=== PATIENT | female | born 1960 | race Caucasian/White ===

== ENCOUNTER 2019-01-10 06:30 | Day surgery (SDC) | payer OTHER ==
--- NOTE | 2019-01-09 12:59 | RAD REPORT ---
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 COMPARISON: Chest Single View dated 05/29/2017 FINDINGS: The lungs are clear. The heart is upper limit of normal in size. No displaced fractures. S ternotomy wires noted. IMPRESSION: Mildly prominent cardiac silhouette.
[2019-01-09 13:48] LABS: Protime INR 1.34
--- OUTSIDE RECORDS SUMMARY | 2019-01-10 06:34 | XMS REPORT | Clinical Summary ---
:1960 Author Organization [facility] Address [address] [place] [address] Care Team Providers Name Role Phone Alex Hui MD Primary Care Provider Noe Huynh Unavailable Allergies Active Allergy Reactions Severity Noted Date Comments Venlafaxine Nausea And Vomiting High 05/29/2017 Heparin Analogues Other (See Comments) 06/07/2017 SULTANA - strong positive OD=2.714 - STEPHAN conformation pending Penicillins Other (See Comments) 05/29/2017 Pt doesn't know Metaxalone Hives High 05/29/2017 Medications Medication Sig Dispensed Refills Start Date End Date Status topiramate Take 25 mg by mouth 0 Active (TOPAMAX) 25 MG daily. tablet metFORMIN Take 1,000 mg by 0 Active (GLUCOPHAGE) 1000 mouth 2 (two) times MG tablet daily with breakfast and dinner. insulin aspart Inject 20 Units 0 Active (NOVOLOG) 100 subcutaneously every unit/mL InPn morning before breakfast. insulin aspart Inject 40 Units 0 Active (NOVOLOG) 100 subcutaneously every unit/mL InPn evening before dinner. levothyroxine Take 175 mcg by 0 Active (SYNTHROID, mouth Every morning LEVOTHROID) 175 MCG on an empty stomach. tablet dextroamphetamine-a Take 3 mg by mouth 0 Active mphetamine every morning. (ADDERALL XR) 5 MG 24 hr capsule warfarin (COUMADIN) Take 5 mg and 2.5 mg 90 tablet 0 06/13/2017 Active 5 MG tablet PO on alternating days.. amiodarone Take 1 tablet (200 30 tablet 0 06/14/2017 (PACERONE) 200 MG mg total) by mouth 8 tablet daily. atorvastatin Take 1 tablet (20 mg 90 tablet 0 06/13/2017 (LIPITOR) 20 MG total) by mouth 8 tablet nightly. metoprolol Take 1 tablet (50 mg 120 tablet 0 06/13/2017 (LOPRESSOR) 50 MG total) by mouth 2 8 tablet (two) times daily. metoprolol Take 1 tablet (100 60 tablet 0 06/13/2017 (TOPROL-XL) 100 MG mg total) by mouth 8 24 hr tablet daily. Active Problems Problem Noted Date Heparin induced thrombocytopenia 06/14/2017 Acute encephalopathy 06/02/2017 Hyperchloremia 06/02/2017 Hypernatremia 06/02/2017 Acute pulmonary insufficiency following thoracic surgery 06/02/2017 DM (acute kidney injury) 06/02/2017 S/P CABG x 3-05/31/17 06/01/2017 Type 2 diabetes mellitus 05/31/2017 Obesity (BMI 30-39.9) 05/31/2017 S/P ACBx3, Dr. Jacob (.13) 05/30/2017 Hypertension 05/30/2017 Hyperlipidemia 05/30/2017 Tobacco abuse 05/30/2017 CAD (coronary artery disease) 05/30/2017 Hypokalemia Acute pulmonary edema Agitation Atrial fibrillation with RVR Social History Tobacco Use Types Packs/Day Years Used Date Never Assessed Sex Assigned at Date Recorded Not on file Job Start Date Occupation Industry Not on file Not on file Not on file Travel History Travel Start Travel End No recent travel history available. Last Filed Vital Signs Not on file Plan of Treatment Not on file Implants Implanted Type [employer] Device Shelf Model / Identifier Expiration Date Serial / Lot Surgical Steel Other Chest [employer] ENDO 08/16/2021 [id number] / Implanted: Qty: 1 on 05/31/2017 by Jonathan Jacob MD SURGERY / [id number] Surgical Steel Other Chest [employer] ENDO 12/16/2021 [id number] / Implanted: Qty: 1 on 05/31/2017 by Jonathan Jacob MD SURGERY / [id number] Results Not on fileafter 01/09/2018 Insurance Payer Benefit Plan / Group Subscriber ID Type Phone Address [employer] - [employer] HMO POS QPOS xxxxxxxxxx HMO/POS Advance Directives For more information, please contact:[id number] [place], [place] [phone] Code Status Date Activated Date Inactivated Comments Full Code 06/02/2017 3:02 PM 06/14/2017 12:58 AM This code status was determined by: Patient Full Code 06/02/2017 12:40 PM 06/02/2017 3:02 PM This code status was determined by: Patient DNR 06/02/2017 12:38 PM 06/02/2017 12:40 PM Full Code 05/30/2017 7:21 PM 06/02/2017 12:38 PM This code status was determined by: Patient Full Code 05/30/2017 1:03 PM 05/30/2017 7:21 PM This code status was determined by: Patient
--- OUTSIDE RECORDS SUMMARY | 2019-01-10 06:38 | XMS REPORT ---
:1960 [facility] Address [address] [place] [address] [address]. [address] [place] [address] Care Team Providers Name Role Phone LATASHA PIERCE Unavailable Unavailable Problems This patient has no known problems. Allergies, Adverse Reactions, Alerts This patient has no known allergies or adverse reactions. Medications This patient has no known medications. Results Test Description Test Time Test Comments Text Results Atomic Results Result Comments PROTHROMBIN TIME/INR 2017-06-13 15:15:00 Test Item Value Reference Range Comments PROTIME (BEAKER) (test zlxl=062) 35.4 seconds 11.7-14.7 INR (BEAKER) (test owqi=106) 3.5 <=5.9 RECOMMENDED COUMADIN/WARFARIN INR THERAPY RANGESSTANDARD DOSE: 2.0 - 3.0 Includes: PROPHYLAXIS forvenous thrombosis, systemic embolization; TREATMENT for venous thrombosis and/or pulmonary embolus.HIGH RISK: Target INR is 2.5-3.5 for patients with mechanical heart valves.POCT-GLUCOSE [id number] 12:58:00 Test Item Value Reference Range Comments POC-GLUCOSE METER (BEAKER) 255 mg/dL 70-110 TESTED AT [facility] [address] [facility] (test kmsn=7819) [facility] [address] POCT-GLUCOSE [id number] 12:38:00 Test Item Value Reference Range Comments POC-GLUCOSE METER (BEAKER) 179 mg/dL 70-110 TESTED AT [facility] [address] [facility] (test wmbj=7825) [facility] [address] [id number] 09:00:00 Test Item Value Reference Range Comments PARTIAL THROMBOPLASTIN TIME (BEAKER) (test 62.7 seconds 22.5-36.0 tlps=581) POCT-GLUCOSE [id number] 08:56:00 Test Item Value Reference Range Comments POC-GLUCOSE METER (BEAKER) 135 mg/dL 70-110 TESTED AT [facility] [address] [place] [address] (test dvlb=4519) [facility] [address] POCT-GLUCOSE [id number] 08:55:00 Test Item Value Reference Range Comments POC-GLUCOSE METER (BEAKER) 148 mg/dL 70-110 TESTED AT [place] [id number] [facility] (test aucm=9363) [facility] [address] [id number] 02:57:00 Test Item Value Reference Range Comments PARTIAL THROMBOPLASTIN TIME (BEAKER) (test 106.5 seconds 22.5-36.0 ytgr=796) While on warfarin.PROTHROMBIN [id number] 02:48:00 Test Item Value Reference Range Comments PROTIME (BEAKER) (test xidf=374) 53.7 seconds 11.7-14.7 INR (BEAKER) (test oaby=852) 5.9 <=5.9 RECOMMENDED COUMADIN/WARFARIN INR THERAPY RANGESSTANDARD DOSE: 2.0 - 3.0 Includes: PROPHYLAXIS forvenous thrombosis, systemic embolization; TREATMENT for venous thrombosis and/or pulmonary embolus.HIGH RISK: Target INR is 2.5-3.5 for patients with mechanical heart valves.While on warfarin.CBC W/PLT COUNT &amp ; AUTO [id number] 02:37:00 Test Item Value Reference Range Comments WHITE BLOOD CELL COUNT (BEAKER) (test gzjz=650) 9.0 K/ L 3.5-10.5 RED BLOOD CELL COUNT (BEAKER) (test wknc=831) 3.13 M/ L 3.93-5.22 HEMOGLOBIN (BEAKER) (test sggj=229) 9.2 GM/DL 11.2-15.7 HEMATOCRIT (BEAKER) (test iypx=139) 29.2 % 34.1-44.9 MEAN CORPUSCULAR VOLUME (BEAKER) (test oiyo=136) 93.3 fL 79.4-94.8 MEAN CORPUSCULAR HEMOGLOBIN (BEAKER) (test 29.4 pg 25.6-32.2 dvlt=712) MEAN CORPUSCULAR HEMOGLOBIN CONC (BEAKER) (test 31.5 GM/DL 32.2-35.5 ewbv=114) RED CELL DISTRIBUTION WIDTH (BEAKER) (test 13.8 % 11.7-14.4 kdgu=292) PLATELET COUNT (BEAKER) (test txhp=082) 130 K/CU MM 150-450 MEAN PLATELET VOLUME (BEAKER) (test lebf=109) 11.6 fL 9.4-12.3 NUCLEATED RED BLOOD CELLS (BEAKER) (test 0 /100 WBC 0-0 kiqs=376) NEUTROPHILS RELATIVE PERCENT (BEAKER) (test 58 % vigx=284) LYMPHOCYTES RELATIVE PERCENT (BEAKER) (test 32 % hueg=777) MONOCYTES RELATIVE PERCENT (BEAKER) (test 7 % tqsx=795) EOSINOPHILS RELATIVE PERCENT (BEAKER) (test 2 % niph=788) BASOPHILS RELATIVE PERCENT (BEAKER) (test 1 % bcos=336) NEUTROPHILS ABSOLUTE COUNT (BEAKER) (test 5.22 K/ L 1.56-6.13 kjmu=383) LYMPHOCYTES ABSOLUTE COUNT (BEAKER) (test 2.84 K/ L 1.18-3.74 uqgi=810) MONOCYTES ABSOLUTE COUNT (BEAKER) (test 0.60 K/ L 0.24-0.36 hrpu=877) EOSINOPHILS ABSOLUTE COUNT (BEAKER) (test 0.19 K/ L 0.04-0.36 keei=041) BASOPHILS ABSOLUTE COUNT (BEAKER) (test 0.08 K/ L 0.01-0.08 nhsy=706) IMMATURE GRANULOCYTES-RELATIVE PERCENT (BEAKER) 1 % 0-1 (test iiif=0829) [id number] 21:45:00 Test Item Value Reference Range Comments PARTIAL THROMBOPLASTIN TIME (BEAKER) (test 117.1 seconds 22.5-36.0 npsz=737) POCT-GLUCOSE [id number] 20:47:00 Test Item Value Reference Range Comments POC-GLUCOSE METER (BEAKER) 107 mg/dL 70-110 TESTED AT [address] (test orje=5762) [place] [id number] POCT-GLUCOSE [id number] 16:58:00 Test Item Value Reference Range Comments POC-GLUCOSE METER (BEAKER) 229 mg/dL 70-110 TESTED AT [address] (test vblj=3694) [place] [address] [id number] 15:13:00 Test Item Value Reference Range Comments PARTIAL THROMBOPLASTIN TIME (BEAKER) (test 40.3 seconds 22.5-36.0 lwei=790) Draw baseline aPTT prior to infusionPOCT-GLUCOSE [id number] 11:16:00 Test Item Value Reference Range Comments POC-GLUCOSE METER (BEAKER) 166 mg/dL 70-110 TESTED AT [place] [id number] [facility] (test zfyk=4716) [facility] [address] POCT-GLUCOSE [id number] 07:45:00 Test Item Value Reference Range Comments POC-GLUCOSE METER (BEAKER) 121 mg/dL 70-110 TESTED AT [address] (test jjdt=5634) [facility] [address] CBC W/PLT COUNT & AUTO [id number] 06:39:00 Test Item Value Reference Range Comments WHITE BLOOD CELL COUNT (BEAKER) (test byci=854) 8.0 K/ L 3.5-10.5 RED BLOOD CELL COUNT (BEAKER) (test xfuf=554) 3.06 M/ L 3.93-5.22 HEMOGLOBIN (BEAKER) (test vquh=103) 8.9 GM/DL 11.2-15.7 HEMATOCRIT (BEAKER) (test kjzo=674) 28.5 % 34.1-44.9 MEAN CORPUSCULAR VOLUME (BEAKER) (test jnsc=885) 93.1 fL 79.4-94.8 MEAN CORPUSCULAR HEMOGLOBIN (BEAKER) (test 29.1 pg 25.6-32.2 oilo=717) MEAN CORPUSCULAR HEMOGLOBIN CONC (BEAKER) (test 31.2 GM/DL 32.2-35.5 ktqy=424) RED CELL DISTRIBUTION WIDTH (BEAKER) (test 13.8 % 11.7-14.4 rgoa=386) PLATELET COUNT (BEAKER) (test ykvr=822) 104 K/CU MM 150-450 MEAN PLATELET VOLUME (BEAKER) (test yrba=763) 11.7 fL 9.4-12.3 NUCLEATED RED BLOOD CELLS (BEAKER) (test 0 /100 WBC 0-0 wwqu=707) NEUTROPHILS RELATIVE PERCENT (BEAKER) (test 64 % qqxw=874) LYMPHOCYTES RELATIVE PERCENT (BEAKER) (test 25 % sftk=376) MONOCYTES RELATIVE PERCENT (BEAKER) (test 7 % vkgg=931) EOSINOPHILS RELATIVE PERCENT (BEAKER) (test 2 % ksuy=174) BASOPHILS RELATIVE PERCENT (BEAKER) (test 1 % lntv=894) NEUTROPHILS ABSOLUTE COUNT (BEAKER) (test 5.12 K/ L 1.56-6.13 frck=300) LYMPHOCYTES ABSOLUTE COUNT (BEAKER) (test 1.95 K/ L 1.18-3.74 mmha=389) MONOCYTES ABSOLUTE COUNT (BEAKER) (test 0.59 K/ L 0.24-0.36 dkkb=439) EOSINOPHILS ABSOLUTE COUNT (BEAKER) (test 0.15 K/ L 0.04-0.36 ggds=963) BASOPHILS ABSOLUTE COUNT (BEAKER) (test 0.04 K/ L 0.01-0.08 leuz=515) IMMATURE GRANULOCYTES-RELATIVE PERCENT (BEAKER) 1 % 0-1 (test ggaq=5867) PROTHROMBIN [id number] 06:30:00 Test Item Value Reference Range Comments PROTIME (BEAKER) (test bhcd=592) 33.5 seconds 11.7-14.7 INR (BEAKER) (test pvwe=864) 3.3 <=5.9 RECOMMENDED COUMADIN/WARFARIN INR THERAPY RANGESSTANDARD DOSE: 2.0 - 3.0 Includes: PROPHYLAXIS forvenous thrombosis, systemic embolization; TREATMENT for venous thrombosis and/or pulmonary embolus.HIGH RISK: Target INR is 2.5-3.5 for patients with mechanical heart valves.While on warfarin.POCT-GLUCOSE [id number] 21:00:00 Test Item Value Reference Range Comments POC-GLUCOSE METER (BEAKER) 107 mg/dL 70-110 TESTED AT [address] (test aaim=8450) [place] [address] POCT-GLUCOSE [id number] 17:03:00 Test Item Value Reference Range Comments POC-GLUCOSE METER (BEAKER) 178 mg/dL 70-110 TESTED AT [address] (test ocvh=8098) [place] [id number] POCT-GLUCOSE [id number] 12:04:00 Test Item Value Reference Range Comments POC-GLUCOSE METER (BEAKER) 121 mg/dL 70-110 TESTED AT [address] (test rucl=5329) [place] [address] CBC W/PLT COUNT & AUTO [id number] 09:07:00 Test Item Value Reference Range Comments WHITE BLOOD CELL COUNT (BEAKER) (test cxlp=718) 8.1 K/ L 3.5-10.5 RED BLOOD CELL COUNT (BEAKER) (test iqwf=053) 3.20 M/ L 3.93-5.22 HEMOGLOBIN (BEAKER) (test xiru=196) 9.3 GM/DL 11.2-15.7 HEMATOCRIT (BEAKER) (test cvof=214) 30.1 % 34.1-44.9 MEAN CORPUSCULAR VOLUME (BEAKER) (test vxnz=836) 94.1 fL 79.4-94.8 MEAN CORPUSCULAR HEMOGLOBIN (BEAKER) (test 29.1 pg 25.6-32.2 rkux=229) MEAN CORPUSCULAR HEMOGLOBIN CONC (BEAKER) (test 30.9 GM/DL 32.2-35.5 wrgb=539) RED CELL DISTRIBUTION WIDTH (BEAKER) (test 13.6 % 11.7-14.4 fsip=421) PLATELET COUNT (BEAKER) (test ltne=455) 93 K/CU MM 150-450 MEAN PLATELET VOLUME (BEAKER) (test kzwt=613) 12.0 fL 9.4-12.3 NUCLEATED RED BLOOD CELLS (BEAKER) (test 0 /100 WBC 0-0 apgj=174) NEUTROPHILS RELATIVE PERCENT (BEAKER) (test 65 % hddj=137) LYMPHOCYTES RELATIVE PERCENT (BEAKER) (test 24 % ncnm=607) MONOCYTES RELATIVE PERCENT (BEAKER) (test 8 % dcni=710) EOSINOPHILS RELATIVE PERCENT (BEAKER) (test 2 % mkfk=807) BASOPHILS RELATIVE PERCENT (BEAKER) (test 1 % awgz=479) NEUTROPHILS ABSOLUTE COUNT (BEAKER) (test 5.24 K/ L 1.56-6.13 uhfv=002) LYMPHOCYTES ABSOLUTE COUNT (BEAKER) (test 1.93 K/ L 1.18-3.74 nmwh=362) MONOCYTES ABSOLUTE COUNT (BEAKER) (test gpxt=797) 0.61 K/ L 0.24-0.36 EOSINOPHILS ABSOLUTE COUNT (BEAKER) (test 0.18 K/ L 0.04-0.36 kwqw=325) BASOPHILS ABSOLUTE COUNT (BEAKER) (test atuj=948) 0.04 K/ L 0.01-0.08 IMMATURE GRANULOCYTES-RELATIVE PERCENT (BEAKER) 1 % 0-1 (test mtco=2594) POCT-GLUCOSE [id number] 07:59:00 Test Item Value Reference Range Comments POC-GLUCOSE METER (BEAKER) 96 mg/dL 70-110 TESTED AT [facility] [address] (test yfrl=4065) [facility] [address] [id number] 07:22:00 Test Item Value Reference Range Comments MAGNESIUM (BEAKER) (test ffug=060) 1.7 mg/dL 1.6-2.6 BASIC METABOLIC [id number] 07:22:00 Test Item Value Reference Range Comments SODIUM (BEAKER) (test 142 meq/L 136-145 hvvb=051) POTASSIUM (BEAKER) (test 3.9 meq/L 3.5-5.1 jilr=676) CHLORIDE (BEAKER) (test 111 meq/L 98-107 oesa=562) CO2 (BEAKER) (test 24 meq/L 22-29 ypvc=533) BLOOD UREA NITROGEN 5 mg/dL 7-21 (BEAKER) (test bbbp=035) CREATININE (BEAKER) (test 0.74 mg/dL 0.57-1.25 ynhh=005) GLUCOSE RANDOM (BEAKER) 89 mg/dL 70-105 (test lehs=035) CALCIUM (BEAKER) (test 8.6 mg/dL 8.4-10.2 dqvo=951) EGFR (BEAKER) (test 81 mL/min/1.73 sq m ESTIMATED GFR IS NOT jesz=0828) ACCURATE CREATININE CLEARANCE IN PREDICTING GLOMERULAR FILTRATION RATE. ESTIMATED GFR IS NOT APPLICABLE FOR DIALYSIS PATIENTS. [id number] 06:56:00 Test Item Value Reference Range Comments PARTIAL THROMBOPLASTIN TIME (BEAKER) (test 86.0 seconds 22.5-36.0 ajiv=262) PROTHROMBIN [id number] 06:54:00 Test Item Value Reference Range Comments PROTIME (BEAKER) (test xjuz=445) 38.5 seconds 11.7-14.7 INR (BEAKER) (test klos=379) 3.9 <=5.9 RECOMMENDED COUMADIN/WARFARIN INR THERAPY RANGESSTANDARD DOSE: 2.0 - 3.0 Includes: PROPHYLAXIS forvenous thrombosis, systemic embolization; TREATMENT for venous thrombosis and/or pulmonary embolus.HIGH RISK: Target INR is 2.5-3.5 for patients with mechanical heart valves.While on warfarin.POCT-GLUCOSE [id number] 21:44:00 Test Item Value Reference Range Comments POC-GLUCOSE METER (BEAKER) 203 mg/dL 70-110 TESTED AT [address] (test skrt=2956) [place] [id number] POCT-GLUCOSE [id number] 16:43:00 Test Item Value Reference Range Comments POC-GLUCOSE METER (BEAKER) 185 mg/dL 70-110 TESTED AT [address] (test iqzz=4182) [place] [address] RAD, WRIST, 2 VIEWS, [id number] 16:40:00Reason for exam:->wrist painFINAL REPORT HISTORY: Pain. COMPARISON: None Discussion: AP, oblique and lateral views of the left wrist were obtained. There are no fractures or dislocations. No lytic or blastic abnormalities are seen. No radiopaque foreign bodies are appreciated. There is negative ulnar variance. IMPRESSION: No acute osseous abnormalities of the left wrist. Signed: Aleksandr Yo Verified Date/Time: 06/10/2017 16:40:18 Reading Location : [address] Reading Room [id number] 15:13:00 Test Item Value Reference Range Comments PARTIAL THROMBOPLASTIN TIME (BEAKER) (test 84.6 seconds 22.5-36.0 ntze=519) 4 hours after the start of continuous infusion and 4 hours after any rate changePOCT-GLUCOSE [id number] 13:01:00 Test Item Value Reference Range Comments POC-GLUCOSE METER (BEAKER) 166 mg/dL 70-110 TESTED AT [address] (test jgnb=6493) [place] [address] [id number] 11:11:00 Test Item Value Reference Range Comments PARTIAL THROMBOPLASTIN TIME (BEAKER) (test 75.4 seconds 22.5-36.0 brsx=252) PROTHROMBIN [id number] 10:13:00 Test Item Value Reference Range Comments PROTIME (BEAKER) (test cxjf=911) 22.8 seconds 11.7-14.7 INR (BEAKER) (test wrpk=203) 2.0 <=5.9 RECOMMENDED COUMADIN/WARFARIN INR THERAPY RANGESSTANDARD DOSE: 2.0 - 3.0 Includes: PROPHYLAXIS forvenous thrombosis, systemic embolization; TREATMENT for venous thrombosis and/or pulmonary embolus.HIGH RISK: Target INR is 2.5-3.5 for patients with mechanical heart valves.CBC W/PLT COUNT & AUTO [id number] 09:48:00 Test Item Value Reference Range Comments WHITE BLOOD CELL COUNT (BEAKER) (test laoy=822) 8.9 K/ L 3.5-10.5 RED BLOOD CELL COUNT (BEAKER) (test enxn=260) 3.17 M/ L 3.93-5.22 HEMOGLOBIN (BEAKER) (test mdtu=492) 9.5 GM/DL 11.2-15.7 HEMATOCRIT (BEAKER) (test nqeo=940) 29.8 % 34.1-44.9 MEAN CORPUSCULAR VOLUME (BEAKER) (test juih=662) 94.0 fL 79.4-94.8 MEAN CORPUSCULAR HEMOGLOBIN (BEAKER) (test 30.0 pg 25.6-32.2 qyfz=424) MEAN CORPUSCULAR HEMOGLOBIN CONC (BEAKER) (test 31.9 GM/DL 32.2-35.5 mcud=510) RED CELL DISTRIBUTION WIDTH (BEAKER) (test 13.6 % 11.7-14.4 hnme=202) PLATELET COUNT (BEAKER) (test mnpf=563) 77 K/CU MM 150-450 MEAN PLATELET VOLUME (BEAKER) (test vsac=513) 11.8 fL 9.4-12.3 NUCLEATED RED BLOOD CELLS (BEAKER) (test 0 /100 WBC 0-0 ejyc=937) NEUTROPHILS RELATIVE PERCENT (BEAKER) (test 63 % myvl=220) LYMPHOCYTES RELATIVE PERCENT (BEAKER) (test 25 % holk=890) MONOCYTES RELATIVE PERCENT (BEAKER) (test 8 % wmwn=301) EOSINOPHILS RELATIVE PERCENT (BEAKER) (test 2 % uokg=347) BASOPHILS RELATIVE PERCENT (BEAKER) (test 1 % nagn=603) NEUTROPHILS ABSOLUTE COUNT (BEAKER) (test 5.58 K/ L 1.56-6.13 fwfo=548) LYMPHOCYTES ABSOLUTE COUNT (BEAKER) (test 2.23 K/ L 1.18-3.74 auez=773) MONOCYTES ABSOLUTE COUNT (BEAKER) (test lmps=244) 0.70 K/ L 0.24-0.36 EOSINOPHILS ABSOLUTE COUNT (BEAKER) (test 0.19 K/ L 0.04-0.36 qhcl=668) BASOPHILS ABSOLUTE COUNT (BEAKER) (test snqc=027) 0.06 K/ L 0.01-0.08 IMMATURE GRANULOCYTES-RELATIVE PERCENT (BEAKER) 2 % 0-1 (test hhan=8058) POCT-GLUCOSE [id number] 08:41:00 Test Item Value Reference Range Comments POC-GLUCOSE METER (BEAKER) 121 mg/dL 70-110 TESTED AT [address] (test vfmv=4081) [place] [address] [id number] 00:26:00 Test Item Value Reference Range Comments PARTIAL THROMBOPLASTIN TIME (BEAKER) (test 53.5 seconds 22.5-36.0 nrbk=513) 4 hours after the start of continuous infusion and 4 hours after any rate changePOCT-GLUCOSE [id number] 21:10:00 Test Item Value Reference Range Comments POC-GLUCOSE METER (BEAKER) 179 mg/dL 70-110 TESTED AT [address] (test dlhi=1187) [place] [address] [id number] 19:09:00 Test Item Value Reference Range Comments PARTIAL THROMBOPLASTIN TIME (BEAKER) (test 58.8 seconds 22.5-36.0 xwje=089) 4 hours after the start of continuous infusion and 4 hours after any rate changePOCT-GLUCOSE [id number] 17:37:00 Test Item Value Reference Range Comments POC-GLUCOSE METER (BEAKER) 207 mg/dL 70-110 TESTED AT [address] (test cnqj=4375) [place] [address] PROTHROMBIN [id number] 14:42:00 Test Item Value Reference Range Comments PROTIME (BEAKER) (test akhk=509) 18.9 seconds 11.7-14.7 INR (BEAKER) (test zohb=309) 1.6 <=5.9 RECOMMENDED COUMADIN/WARFARIN INR THERAPY RANGESSTANDARD DOSE: 2.0 - 3.0 Includes: PROPHYLAXIS forvenous thrombosis, systemic embolization; TREATMENT for venous thrombosis and/or pulmonary embolus.HIGH RISK: Target INR is 2.5-3.5 for patients with mechanical heart valves.4 hours after the start of continuous infusion and 4 hours after any rate [id number] 14:42:00 Test Item Value Reference Range Comments PARTIAL THROMBOPLASTIN TIME (BEAKER) (test 52.7 seconds 22.5-36.0 lqxe=245) 4 hours after the start of continuous infusion and 4 hours after any rate changeBASIC METABOLIC [id number] 14:25:00 Test Item Value Reference Range Comments SODIUM (BEAKER) (test 140 meq/L 136-145 xwch=700) POTASSIUM (BEAKER) (test 3.7 meq/L 3.5-5.1 knxs=075) CHLORIDE (BEAKER) (test 112 meq/L 98-107 ttba=238) CO2 (BEAKER) (test 19 meq/L 22-29 wpuc=268) BLOOD UREA NITROGEN 6 mg/dL 7-21 (BEAKER) (test pbtr=641) CREATININE (BEAKER) (test 0.74 mg/dL 0.57-1.25 oure=706) GLUCOSE RANDOM (BEAKER) 209 mg/dL 70-105 (test vuqe=033) CALCIUM (BEAKER) (test 8.3 mg/dL 8.4-10.2 wmvl=703) EGFR (BEAKER) (test 81 mL/min/1.73 sq m ESTIMATED GFR IS NOT ajjp=7708) ACCURATE CREATININE CLEARANCE IN PREDICTING GLOMERULAR FILTRATION RATE. ESTIMATED GFR IS NOT APPLICABLE FOR DIALYSIS PATIENTS. [id number] 13:43:00 Test Item Value Reference Range Comments PARTIAL THROMBOPLASTIN TIME (BEAKER) (test 134.0 seconds 22.5-36.0 igiq=482) [id number] 13:29:00 Test Item Value Reference Range Comments FIBRINOGEN LEVEL (BEAKER) (test ryee=835) 227 mg/dl 225-434 CBC (HEMOGRAM ONLY)2017-06-09 13:00:00 Test Item Value Reference Range Comments WHITE BLOOD CELL COUNT (BEAKER) (test ilxl=353) 9.1 K/ L 3.5-10.5 RED BLOOD CELL COUNT (BEAKER) (test wxiv=773) 3.13 M/ L 3.93-5.22 HEMOGLOBIN (BEAKER) (test wqsz=837) 9.3 GM/DL 11.2-15.7 HEMATOCRIT (BEAKER) (test yzor=816) 29.3 % 34.1-44.9 MEAN CORPUSCULAR VOLUME (BEAKER) (test htad=112) 93.6 fL 79.4-94.8 MEAN CORPUSCULAR HEMOGLOBIN (BEAKER) (test 29.7 pg 25.6-32.2 foya=848) MEAN CORPUSCULAR HEMOGLOBIN CONC (BEAKER) (test 31.7 GM/DL 32.2-35.5 jgas=361) RED CELL DISTRIBUTION WIDTH (BEAKER) (test 13.6 % 11.7-14.4 icbs=284) PLATELET COUNT (BEAKER) (test vnyd=796) 57 K/CU MM 150-450 MEAN PLATELET VOLUME (BEAKER) (test obui=281) 12.3 fL 9.4-12.3 NUCLEATED RED BLOOD CELLS (BEAKER) (test 0 /100 WBC 0-0 qfqw=433) POCT-GLUCOSE [id number] 12:46:00 Test Item Value Reference Range Comments POC-GLUCOSE METER (BEAKER) 258 mg/dL 70-110 TESTED AT [address] (test drsr=5852) [place] [address] POCT-GLUCOSE [id number] 08:22:00 Test Item Value Reference Range Comments POC-GLUCOSE METER (BEAKER) 192 mg/dL 70-110 TESTED AT [address] (test tigy=7628) [place] [address] POCT-GLUCOSE [id number] 21:38:00 Test Item Value Reference Range Comments POC-GLUCOSE METER (BEAKER) 180 mg/dL 70-110 TESTED AT [address] (test haki=0689) [place] [address] POCT-GLUCOSE [id number] 17:09:00 Test Item Value Reference Range Comments POC-GLUCOSE METER (BEAKER) 182 mg/dL 70-110 TESTED AT [address] (test xiwr=0521) [place] [address] HIV-1 ANTIGEN WITH HIV-1/2 [id number] 14:38:00 Test Item Value Reference Range Comments HIV-1 ANTIGEN WITH HIV 1\T\2 ANTIBODY (2) Nonreactive Nonreactive (BEAKER) (test gjoj=9128) POCT-GLUCOSE [id number] 12:46:00 Test Item Value Reference Range Comments POC-GLUCOSE METER (BEAKER) 249 mg/dL 70-110 TESTED AT [facility] [address] [facility] (test qzhl=9242) [facility] [address] POCT-GLUCOSE [id number] 08:48:00 Test Item Value Reference Range Comments POC-GLUCOSE METER (BEAKER) 279 mg/dL 70-110 TESTED AT [facility] [address] [facility] (test wbjl=6592) [facility] [address] VITAMIN B12 AND [id number] 08:15:00 Test Item Value Reference Range Comments VITAMIN B12 (BEAKER) (test jooo=743) > pg/mL 213-816 FOLATE (BEAKER) (test xnyn=628) 12.9 ng/mL >=7.0 [id number] 07:39:00 Test Item Value Reference Range Comments PARTIAL THROMBOPLASTIN TIME (BEAKER) (test 57.4 seconds 22.5-36.0 yojn=081) [id number] 03:13:00 Test Item Value Reference Range Comments MAGNESIUM (BEAKER) (test gzuh=302) 1.7 mg/dL 1.6-2.6 BASIC METABOLIC [id number] 03:13:00 Test Item Value Reference Range Comments SODIUM (BEAKER) (test 141 meq/L 136-145 fbcp=520) POTASSIUM (BEAKER) (test 3.9 meq/L 3.5-5.1 ueuw=618) CHLORIDE (BEAKER) (test 115 meq/L 98-107 prpv=000) CO2 (BEAKER) (test 19 meq/L 22-29 irzi=001) BLOOD UREA NITROGEN 8 mg/dL 7-21 (BEAKER) (test cfvi=236) CREATININE (BEAKER) (test 0.71 mg/dL 0.57-1.25 cout=217) GLUCOSE RANDOM (BEAKER) 246 mg/dL 70-105 (test eluu=044) CALCIUM (BEAKER) (test 8.2 mg/dL 8.4-10.2 korf=237) EGFR (BEAKER) (test 85 mL/min/1.73 sq m ESTIMATED GFR IS NOT lxom=2800) ACCURATE CREATININE CLEARANCE IN PREDICTING GLOMERULAR FILTRATION RATE. ESTIMATED GFR IS NOT APPLICABLE FOR DIALYSIS PATIENTS. [id number] 03:09:00 Test Item Value Reference Range Comments PARTIAL THROMBOPLASTIN TIME (BEAKER) (test 55.3 seconds 22.5-36.0 mpbr=656) 4 hours after the start of continuous infusion and 4 hours after any rate changeCBC W/PLT COUNT & AUTO [id number] 02:51:00 Test Item Value Reference Range Comments WHITE BLOOD CELL COUNT (BEAKER) (test zynt=028) 10.0 K/ L 3.5-10.5 RED BLOOD CELL COUNT (BEAKER) (test whdt=235) 3.39 M/ L 3.93-5.22 HEMOGLOBIN (BEAKER) (test smye=782) 10.1 GM/DL 11.2-15.7 HEMATOCRIT (BEAKER) (test tdcj=064) 30.8 % 34.1-44.9 MEAN CORPUSCULAR VOLUME (BEAKER) (test xack=603) 90.9 fL 79.4-94.8 MEAN CORPUSCULAR HEMOGLOBIN (BEAKER) (test 29.8 pg 25.6-32.2 njvn=336) MEAN CORPUSCULAR HEMOGLOBIN CONC (BEAKER) (test 32.8 GM/DL 32.2-35.5 wusf=900) RED CELL DISTRIBUTION WIDTH (BEAKER) (test 13.2 % 11.7-14.4 voyt=274) PLATELET COUNT (BEAKER) (test qpjj=920) 31 K/CU MM 150-450 MEAN PLATELET VOLUME (BEAKER) (test wgsc=089) 12.7 fL 9.4-12.3 NUCLEATED RED BLOOD CELLS (BEAKER) (test 0 /100 WBC 0-0 wboo=443) NEUTROPHILS RELATIVE PERCENT (BEAKER) (test 54 % ccyn=395) LYMPHOCYTES RELATIVE PERCENT (BEAKER) (test 28 % yeox=890) MONOCYTES RELATIVE PERCENT (BEAKER) (test 10 % jzmr=625) EOSINOPHILS RELATIVE PERCENT (BEAKER) (test 2 % umfw=086) BASOPHILS RELATIVE PERCENT (BEAKER) (test 1 % sjgn=323) NEUTROPHILS ABSOLUTE COUNT (BEAKER) (test 5.43 K/ L 1.56-6.13 bybs=258) LYMPHOCYTES ABSOLUTE COUNT (BEAKER) (test 2.84 K/ L 1.18-3.74 qqjq=436) MONOCYTES ABSOLUTE COUNT (BEAKER) (test xfpd=352) 1.01 K/ L 0.24-0.36 EOSINOPHILS ABSOLUTE COUNT (BEAKER) (test 0.22 K/ L 0.04-0.36 ilpu=208) BASOPHILS ABSOLUTE COUNT (BEAKER) (test lzzf=368) 0.05 K/ L 0.01-0.08 IMMATURE GRANULOCYTES-RELATIVE PERCENT (BEAKER) 5 % 0-1 (test ftwh=7200) POCT-GLUCOSE [id number] 21:31:00 Test Item Value Reference Range Comments POC-GLUCOSE METER (BEAKER) 234 mg/dL 70-110 TESTED AT [facility] [address] [facility] (test vhcr=5758) [place] [address] PROTHROMBIN [id number] 20:58:00 Test Item Value Reference Range Comments PROTIME (BEAKER) (test tvkm=789) 15.0 seconds 11.7-14.7 INR (BEAKER) (test fdok=225) 1.2 <=5.9 RECOMMENDED COUMADIN/WARFARIN INR THERAPY RANGESSTANDARD DOSE: 2.0 - 3.0 Includes: PROPHYLAXIS forvenous thrombosis, systemic embolization; TREATMENT for venous thrombosis and/or pulmonary embolus.HIGH RISK: Target INR is 2.5-3.5 for patients with mechanical heart valves.[id number] 19:10:00 Test Item Value Reference Range Comments HAPTOGLOBIN (BEAKER) (test ujrl=590) 155 mg/dL 14-258 [id number] 18:47:00 Test Item Value Reference Range Comments PARTIAL THROMBOPLASTIN TIME (BEAKER) (test 29.6 seconds 22.5-36.0 nbse=587) Draw baseline aPTT prior to infusionLACTATE DEHYDROGENASE (LDH)2017-06-07 18:40: 00 Test Item Value Reference Range Comments LACTATE DEHYDROGENASE (BEAKER) (test xipu=383) 541 U/L 125-220 [id number] 18:23:00 Test Item Value Reference Range Comments FIBRINOGEN LEVEL (BEAKER) (test zwyr=116) 194 mg/dl 225-434 PERIPHERAL BLOOD SMEAR - HOLD [id number] 18:19:00 Test Item Value Reference Range Comments PERIPHERAL SMEAR SAVE (BEAKER) (test smear saved, 06-07-17 djuv=2115) RETICULOCYTE [id number] 18:15:00 Test Item Value Reference Range Comments RETICULOCYTE COUNT PCT (BEAKER) (test tqge=403) 3.1 % 0.5-1.7 POCT-GLUCOSE [id number] 17:04:00 Test Item Value Reference Range Comments POC-GLUCOSE METER (BEAKER) 216 mg/dL 70-110 TESTED AT [facility] [address] [facility] (test jqof=2300) [facility] [address] POCT-GLUCOSE [id number] 16:50:00 Test Item Value Reference Range Comments POC-GLUCOSE METER (BEAKER) 205 mg/dL 70-110 TESTED AT [facility] [address] [facility] (test eheo=1789) [facility] [address] EEG AWAKE AND [id number] 15:30:00Reason for exam:-> EncephalopathyShould this be performed at the bedside?->YesDATE OF EE06-07 DATE OF REPORT: 06-07-2017 ACC: [id number] EE Start time: 14:03 Stoptime: 14:24 ICD-10: G 93.40 CPT Code: 92659 HISTORY: 56 y.o. female who s/ p triple coronary bypass. During the immediate recovery period, patient is noted to have elements of encephalopathy MEDICATIONS THAT COULD AFFECT EEG: topiramate TECHNICAL SUMMARY: This is a digital EEG recorded with 32 inputchannels on a [employer] system and then reviewed with bipolar and referential montages using the modified combinatorial system nomenclature. DESCRIPTION OF RECORD: During the maximally alert state a 9 Hz posterior dominant rhythm was seen that was symmetric, reactive to eye opening and well regulated. More anteriorly, low voltage frontocentral beta predominated. Drowsiness or stage II sleep (N2 sleep) was not captured in this recording. HV : Hyperventilation was not performed. PHOTIC STIMULATION: Photic Stimulation was not done. IMPRESSION: Normal awake EEG CLINICAL CORRELATION: An EEG without epileptiform discharges does not exclude the possibility of epilepsy. It the clinical suspicion of epilepsy remains, consider additional EEG recordings. Dulce Kauffman MD Neurophysiology Fellow PGY5 Danya Manning [facility] Neurophysiology/Epilepsy Attending Electronically signedby: DANYA MANNING MD on 06/07/2017 03:30 PMHEPARIN [id number] 12:37:00 Test Item Value Reference Range Comments HEPARIN ANTIBODY (BEAKER) Positive-See Serotonin Release Negative (test cvds=369) Assay for Confirmation HEPARIN ANTIBODY OD (BEAKER) 2.714 <0.400 (test muoh=1807) 4T TOTAL SCORE (BEAKER) 2 (test srxc=2482) Probability of HIT based on scoring system: 6-8=High probability; 4-5= intermediate probability; 0-3=low probabilityPOCT-GLUCOSE [id number] 08:39: 00 Test Item Value Reference Range Comments POC-GLUCOSE METER (BEAKER) 216 mg/dL 70-110 TESTED AT [facility] [address] [facility] (test clhe=7981) [facility] [address] CT, BRAIN, WITHOUT [id number] 07:43:00FINAL REPORT CT head without contrast. Comparisons: No Reason for exam: Confusion /delirium, altered LOC, unexplained. Discussion: Multiple axial CT images of the head are provided without contrast evaluated in brain and bone windows. Dose modulation, iterative reconstruction, and/or weight based adjustment of the mA/kV was utilized to reduce the radiation dose to as low as reasonably achievable. There is no CT evidence of intracranial hemorrhage, mass -effect, hydrocephalus, shift, or extra-axial collections. The visualized dural sinus regions, orbital contents, paranasal sinuses, bones and surrounding soft tissues are unremarkable. Impressions: 1. No specific evidence of acute intracranial abnormality. Signed: Radha Rayo Verified Date/ Time: 06/07/2017 07:43:12 Reading Location: [address] Neuro Reading Room BASIC METABOLIC [id number] 05:38:00 Test Item Value Reference Range Comments SODIUM (BEAKER) (test 138 meq/L 136-145 kiwy=290) POTASSIUM (BEAKER) (test 3.2 meq/L 3.5-5.1 ctcv=548) CHLORIDE (BEAKER) (test 109 meq/L 98-107 tfuf=821) CO2 (BEAKER) (test 21 meq/L 22-29 baxp=277) BLOOD UREA NITROGEN 11 mg/dL 7-21 (BEAKER) (test oblo=970) CREATININE (BEAKER) (test 0.75 mg/dL 0.57-1.25 jrqo=776) GLUCOSE RANDOM (BEAKER) 212 mg/dL 70-105 (test riqw=251) CALCIUM (BEAKER) (test 7.8 mg/dL 8.4-10.2 ffjx=143) EGFR (BEAKER) (test 80 mL/min/1.73 sq m ESTIMATED GFR IS NOT ldho=7593) ACCURATE CREATININE CLEARANCE IN PREDICTING GLOMERULAR FILTRATION RATE. ESTIMATED GFR IS NOT APPLICABLE FOR DIALYSIS PATIENTS. [id number] 05:37:00 Test Item Value Reference Range Comments MAGNESIUM (BEAKER) (test bynl=184) 1.8 mg/dL 1.6-2.6 HEPATIC FUNCTION [id number] 05:37:00 Test Item Value Reference Range Comments TOTAL PROTEIN (BEAKER) (test huat=943) 5.5 gm/dL 6.0-8.3 ALBUMIN (BEAKER) (test qwce=1805) 3.0 g/dL 3.5-5.0 BILIRUBIN TOTAL (BEAKER) (test sjmg=253) 1.6 mg/dL 0.2-1.2 BILIRUBIN DIRECT (BEAKER) (test dtvw=073) 0.7 mg/dL 0.1-0.5 ALKALINE PHOSPHATASE (BEAKER) (test spro=700) 77 U/L 40-150 AST (SGOT) (BEAKER) (test cstd=044) 41 U/L 5-34 ALT (SGPT) (BEAKER) (test mpwt=276) 314 U/L 6-55 CBC W/PLT COUNT & AUTO [id number] 05:10:00 Test Item Value Reference Range Comments WHITE BLOOD CELL COUNT (BEAKER) (test vjod=435) 11.9 K/ L 3.5-10.5 RED BLOOD CELL COUNT (BEAKER) (test dmvv=522) 3.50 M/ L 3.93-5.22 HEMOGLOBIN (BEAKER) (test eaqu=491) 10.5 GM/DL 11.2-15.7 HEMATOCRIT (BEAKER) (test tvoy=282) 32.2 % 34.1-44.9 MEAN CORPUSCULAR VOLUME (BEAKER) (test owrc=086) 92.0 fL 79.4-94.8 MEAN CORPUSCULAR HEMOGLOBIN (BEAKER) (test 30.0 pg 25.6-32.2 qnfe=142) MEAN CORPUSCULAR HEMOGLOBIN CONC (BEAKER) (test 32.6 GM/DL 32.2-35.5 ohmn=994) RED CELL DISTRIBUTION WIDTH (BEAKER) (test 12.8 % 11.7-14.4 qasx=922) PLATELET COUNT (BEAKER) (test myoo=061) 32 K/CU MM 150-450 MEAN PLATELET VOLUME (BEAKER) (test zkzk=519) 12.0 fL 9.4-12.3 NUCLEATED RED BLOOD CELLS (BEAKER) (test 0 /100 WBC 0-0 srit=905) NEUTROPHILS RELATIVE PERCENT (BEAKER) (test 60 % xxoa=824) LYMPHOCYTES RELATIVE PERCENT (BEAKER) (test 21 % jhqy=058) MONOCYTES RELATIVE PERCENT (BEAKER) (test 9 % jusm=186) EOSINOPHILS RELATIVE PERCENT (BEAKER) (test 4 % ssos=992) BASOPHILS RELATIVE PERCENT (BEAKER) (test 1 % njtn=239) NEUTROPHILS ABSOLUTE COUNT (BEAKER) (test 7.14 K/ L 1.56-6.13 zyxp=402) LYMPHOCYTES ABSOLUTE COUNT (BEAKER) (test 2.50 K/ L 1.18-3.74 lmdk=775) MONOCYTES ABSOLUTE COUNT (BEAKER) (test iacx=067) 1.12 K/ L 0.24-0.36 EOSINOPHILS ABSOLUTE COUNT (BEAKER) (test 0.42 K/ L 0.04-0.36 sdfo=551) BASOPHILS ABSOLUTE COUNT (BEAKER) (test pxvl=734) 0.09 K/ L 0.01-0.08 IMMATURE GRANULOCYTES-RELATIVE PERCENT (BEAKER) 5 % 0-1 (test zeio=9689) POCT-GLUCOSE [id number] 21:40:00 Test Item Value Reference Range Comments POC-GLUCOSE METER (BEAKER) 224 mg/dL 70-110 TESTED AT [address] (test broz=5786) [facility] [address] POCT-GLUCOSE [id number] 17:48:00 Test Item Value Reference Range Comments POC-GLUCOSE METER (BEAKER) 244 mg/dL 70-110 TESTED AT [address] (test tarv=8105) [facility] [address] POCT-GLUCOSE [id number] 12:20:00 Test Item Value Reference Range Comments POC-GLUCOSE METER (BEAKER) 289 mg/dL 70-110 TESTED AT [facility] [address] (test eyiq=9668) [place] [address] CBC W/PLT COUNT & AUTO [id number] 09:44:00 Test Item Value Reference Range Comments WHITE BLOOD CELL COUNT (BEAKER) (test ixgv=228) 12.3 K/ L 3.5-10.5 RED BLOOD CELL COUNT (BEAKER) (test pslz=554) 3.59 M/ L 3.93-5.22 HEMOGLOBIN (BEAKER) (test dpxk=301) 10.9 GM/DL 11.2-15.7 HEMATOCRIT (BEAKER) (test ctnb=769) 33.1 % 34.1-44.9 MEAN CORPUSCULAR VOLUME (BEAKER) (test yclv=392) 92.2 fL 79.4-94.8 MEAN CORPUSCULAR HEMOGLOBIN (BEAKER) (test 30.4 pg 25.6-32.2 ymaa=965) MEAN CORPUSCULAR HEMOGLOBIN CONC (BEAKER) (test 32.9 GM/DL 32.2-35.5 gcuo=522) RED CELL DISTRIBUTION WIDTH (BEAKER) (test 12.6 % 11.7-14.4 nnov=947) PLATELET COUNT (BEAKER) (test focd=519) 60 K/CU MM 150-450 MEAN PLATELET VOLUME (BEAKER) (test side=701) 11.5 fL 9.4-12.3 NUCLEATED RED BLOOD CELLS (BEAKER) (test 1 /100 WBC 0-0 lqha=095) IMMATURE GRANULOCYTES-RELATIVE PERCENT (BEAKER) 4 % 0-1 (test shwh=1047) (MANUAL DIFFERENTIAL)2017-06-06 09:44:00 Test Item Value Reference Range Comments NEUTROPHILS - REL (DIFF) (BEAKER) (test hnny=8936) 65 % LYMPHOCYTES - REL (DIFF) (BEAKER) (test ncek=7684) 18 % MONOCYTES - REL (DIFF) (BEAKER) (test tlau=0468) 6 % EOSINOPHILS - REL (DIFF) (BEAKER) (test zbvc=2806) 4 % BASOPHILS - REL (DIFF) (BEAKER) (test hjxz=2195) 1 % METAMYELOCYTES-REL (DIFF) (BEAKER) (test iwfp=576) 1 % 0-0 MYELOCYTES-REL (DIFF) (BEAKER) (test xumo=5930) 1 % 0-0 BANDS - REL (DIFF) (BEAKER) (test yyrv=5149) 2 % 0-10 ATYPICAL LYMPHOCYTE - REL (DIFF) (BEAKER) (test 2 % 0-0 fxja=161) NEUTROPHILS - ABS (DIFF) (BEAKER) (test bequ=0440) 8.00 K/ L 1.80-8.00 LYMPHOCYTES - ABS (DIFF) (BEAKER) (test tibd=3946) 2.21 K/ L 1.48-4.50 MONOCYTES - ABS (DIFF) (BEAKER) (test duon=8276) 0.74 K/ L 0.00-1.30 EOSINOPHILS - ABS (DIFF) (BEAKER) (test opmk=5663) 0.49 K/ L 0.00-0.50 BASOPHILS - ABS (DIFF) (BEAKER) (test zauf=8292) 0.12 K/ L 0.00-0.20 METAMYELOCTYES - ABS (DIFF) (BEAKER) (test 0.12 K/ L 0.00-0.00 qkuz=589) BANDS-ABS (DIFF) (BEAKER) (test rahy=3871) 0.2 K/ L 0.0-0.8 ATYPICAL LYMPHOCYTES - ABS (DIFF) (BEAKER) (test 0.25 K/ L 0.00-0.00 ehos=649) MYELOCYTES-ABS (DIFF) (BEAKER) (test sblu=9767) 0.12 K/ L 0.00-0.00 TOTAL COUNTED (BEAKER) (test oilb=8370) 100 BANDS + SEGMENTED NEUTROPHILS (BEAKER) (test 8.24 ewmx=9780) WBC MORPHOLOGY (BEAKER) (test bije=915) Normal GIANT PLATELETS (BEAKER) (test gokp=333) Present POLYCHROMATOPHILLIC RBCS(BEAKER) (test yxiq=057) 1+ few Fibrin strands presentRAD, CHEST, 1 VIEW, NON [id number] 08:59:00Reason for exam:->s/p ACB, volume overloadFINAL REPORT INDICATION : s/p ACB, volume overload COMPARISON: June 05, 2017 TECHNIQUE: Chest radiograph, single view, portable technique. FINDINGS / IMPRESSION: Right internal jugular line and feeding tube are removed. Pulmonary venous congestion has resolved. No consolidation, pneumothorax, or pleural effusion is demonstrated. Median sternotomy wires are intact. Mild enlargement cardiac silhouette noted. In summary, no postoperative complication. Signed: Leroy Hatch MDReport Verified Date/Time: 06/06/2017 08:59:25 Reading Location: [address] Ortho Consult Reading Room POCT-GLUCOSE [id number] 08:29:00 Test Item Value Reference Range Comments POC-GLUCOSE METER (BEAKER) 223 mg/dL 70-110 TESTED AT [facility] [address] [facility] (test nato=5408) [facility] [address] [id number] 07:11:00 Test Item Value Reference Range Comments MAGNESIUM (BEAKER) (test jmqc=649) 2.0 mg/dL 1.6-2.6 BASIC METABOLIC [id number] 07:11:00 Test Item Value Reference Range Comments SODIUM (BEAKER) (test 140 meq/L 136-145 wflw=108) POTASSIUM (BEAKER) (test 3.9 meq/L 3.5-5.1 xmuy=975) CHLORIDE (BEAKER) (test 108 meq/L 98-107 ucil=341) CO2 (BEAKER) (test 23 meq/L 22-29 lkhl=163) BLOOD UREA NITROGEN 13 mg/dL 7-21 (BEAKER) (test ftph=343) CREATININE (BEAKER) (test 0.80 mg/dL 0.57-1.25 smzr=171) GLUCOSE RANDOM (BEAKER) 229 mg/dL 70-105 (test lfqy=090) CALCIUM (BEAKER) (test 8.1 mg/dL 8.4-10.2 aojh=660) EGFR (BEAKER) (test 74 mL/min/1.73 sq m ESTIMATED GFR IS NOT hlhj=6953) ACCURATE CREATININE CLEARANCE IN PREDICTING GLOMERULAR FILTRATION RATE. ESTIMATED GFR IS NOT APPLICABLE FOR DIALYSIS PATIENTS. HEPATIC FUNCTION [id number] 07:11:00 Test Item Value Reference Range Comments TOTAL PROTEIN (BEAKER) (test yccm=216) 5.9 gm/dL 6.0-8.3 ALBUMIN (BEAKER) (test mwbq=2233) 3.3 g/dL 3.5-5.0 BILIRUBIN TOTAL (BEAKER) (test jynv=634) 1.6 mg/dL 0.2-1.2 BILIRUBIN DIRECT (BEAKER) (test kpti=079) 0.8 mg/dL 0.1-0.5 ALKALINE PHOSPHATASE (BEAKER) (test hniw=710) 78 U/L 40-150 AST (SGOT) (BEAKER) (test ruqv=602) 62 U/L 5-34 ALT (SGPT) (BEAKER) (test vrvs=670) 467 U/L 6-55 POCT-GLUCOSE [id number] 22:29:00 Test Item Value Reference Range Comments POC-GLUCOSE METER (BEAKER) 323 mg/dL 70-110 TESTED AT [address] (test rxig=4742) [facility] [address] POCT-GLUCOSE [id number] 19:23:00 Test Item Value Reference Range Comments POC-GLUCOSE METER (BEAKER) 244 mg/dL 70-110 TESTED AT [address] (test ssni=6983) [facility] [address] POCT-GLUCOSE [id number] 18:05:00 Test Item Value Reference Range Comments POC-GLUCOSE METER (BEAKER) 260 mg/dL 70-110 TESTED AT [address] (test ijgp=9190) [facility] [address] HEPARIN [id number] 14:11:00 Test Item Value Reference Range Comments HEPARIN ANTIBODY (BEAKER) (test swdg=802) Negative Negative HEPARIN ANTIBODY OD (BEAKER) (test vllq=8743) 0.246 <0.400 4T TOTAL SCORE (BEAKER) (test ivff=5717) 5 Probability of HIT based on scoring system: 6-8=High probability; 4-5= intermediate probability; 0-3=low probabilityPOCT-GLUCOSE [id number] 12:54: 00 Test Item Value Reference Range Comments POC-GLUCOSE METER (BEAKER) 275 mg/dL 70-110 TESTED AT [address] (test ozmw=6827) [facility] [address] POCT-GLUCOSE [id number] 08:17:00 Test Item Value Reference Range Comments POC-GLUCOSE METER (BEAKER) 173 mg/dL 70-110 [address] (test injv=5417) [facility] [address] CALCIUM, [id number] 07:00:00 Test Item Value Reference Range Comments CALCIUM IONIZED (BEAKER) (test dxhr=581) 1.04 mmol/L 1.12-1.27 PH, BLOOD (BEAKER) (test kuga=8825) 7.42 [id number] 06:51:00 Test Item Value Reference Range Comments MAGNESIUM (BEAKER) (test rybk=024) 2.0 mg/dL 1.6-2.6 HEPATIC FUNCTION [id number] 06:51:00 Test Item Value Reference Range Comments TOTAL PROTEIN (BEAKER) (test bnom=013) 5.3 gm/dL 6.0-8.3 ALBUMIN (BEAKER) (test ynsm=1686) 3.0 g/dL 3.5-5.0 BILIRUBIN TOTAL (BEAKER) (test zrbz=109) 1.5 mg/dL 0.2-1.2 BILIRUBIN DIRECT (BEAKER) (test hntc=276) 0.8 mg/dL 0.1-0.5 ALKALINE PHOSPHATASE (BEAKER) (test vkyc=921) 62 U/L 40-150 AST (SGOT) (BEAKER) (test ayoe=471) 181 U/L 5-34 ALT (SGPT) (BEAKER) (test hthr=465) 803 U/L 6-55 BASIC METABOLIC [id number] 06:51:00 Test Item Value Reference Range Comments SODIUM (BEAKER) (test 142 meq/L 136-145 qzkk=000) POTASSIUM (BEAKER) (test 3.2 meq/L 3.5-5.1 jfss=539) CHLORIDE (BEAKER) (test 110 meq/L 98-107 ndqa=619) CO2 (BEAKER) (test 23 meq/L 22-29 fgam=968) BLOOD UREA NITROGEN 18 mg/dL 7-21 (BEAKER) (test lnwy=805) CREATININE (BEAKER) (test 0.72 mg/dL 0.57-1.25 hneq=864) GLUCOSE RANDOM (BEAKER) 165 mg/dL 70-105 (test qcao=805) CALCIUM (BEAKER) (test 7.9 mg/dL 8.4-10.2 elfd=750) EGFR (BEAKER) (test 84 mL/min/1.73 sq m ESTIMATED GFR IS NOT msgb=4050) ACCURATE CREATININE CLEARANCE IN PREDICTING GLOMERULAR FILTRATION RATE. ESTIMATED GFR IS NOT APPLICABLE FOR DIALYSIS PATIENTS. CBC W/PLT COUNT & AUTO [id number] 05:59:00 Test Item Value Reference Range Comments WHITE BLOOD CELL COUNT (BEAKER) (test ymgf=929) 9.2 K/ L 3.5-10.5 RED BLOOD CELL COUNT (BEAKER) (test gnto=171) 2.92 M/ L 3.93-5.22 HEMOGLOBIN (BEAKER) (test dmfn=995) 8.9 GM/DL 11.2-15.7 HEMATOCRIT (BEAKER) (test iaui=236) 27.1 % 34.1-44.9 MEAN CORPUSCULAR VOLUME (BEAKER) (test xhfc=678) 92.8 fL 79.4-94.8 MEAN CORPUSCULAR HEMOGLOBIN (BEAKER) (test 30.5 pg 25.6-32.2 farr=753) MEAN CORPUSCULAR HEMOGLOBIN CONC (BEAKER) (test 32.8 GM/DL 32.2-35.5 umpo=228) RED CELL DISTRIBUTION WIDTH (BEAKER) (test 12.7 % 11.7-14.4 vbrk=769) PLATELET COUNT (BEAKER) (test ixxa=282) 87 K/CU MM 150-450 MEAN PLATELET VOLUME (BEAKER) (test wnok=165) 11.6 fL 9.4-12.3 NUCLEATED RED BLOOD CELLS (BEAKER) (test 0 /100 WBC 0-0 vzsp=576) NEUTROPHILS RELATIVE PERCENT (BEAKER) (test 63 % esns=428) LYMPHOCYTES RELATIVE PERCENT (BEAKER) (test 20 % cjuh=929) MONOCYTES RELATIVE PERCENT (BEAKER) (test 11 % mibl=192) EOSINOPHILS RELATIVE PERCENT (BEAKER) (test 5 % uvey=155) BASOPHILS RELATIVE PERCENT (BEAKER) (test 0 % ycsh=559) NEUTROPHILS ABSOLUTE COUNT (BEAKER) (test 5.80 K/ L 1.56-6.13 sekl=422) LYMPHOCYTES ABSOLUTE COUNT (BEAKER) (test 1.81 K/ L 1.18-3.74 rxln=596) MONOCYTES ABSOLUTE COUNT (BEAKER) (test bpkc=774) 1.02 K/ L 0.24-0.36 EOSINOPHILS ABSOLUTE COUNT (BEAKER) (test 0.46 K/ L 0.04-0.36 ilxo=503) BASOPHILS ABSOLUTE COUNT (BEAKER) (test ntjx=848) 0.04 K/ L 0.01-0.08 IMMATURE GRANULOCYTES-RELATIVE PERCENT (BEAKER) 1 % 0-1 (test jczv=6438) RAD, CHEST, 1 VIEW, NON [id number] 05:34:00Reason for exam:->s/p cardiac surgeryFINAL REPORT RAD, CHEST, 1 VIEW, NON DEPT INDICATION: s/p cardiac surgery COMPARISON: Prior day's exam FINDINGS: Portable frontal view of the chest. IMPRESSION: Support Lines:Stable. Lungs and pleura : Congestive changes in the airspaces similar to prior examination. No new focal opacity or effusion. No pneumothorax.Heart and mediastinum: Stable contours. Stable surgical changes.Additional findings: None. Signed: JR Goodwin Robert MDReport Verified Date/Time: 06/05/2017 05:34:02 Reading Location: [place] [id number] CT Body Reading Room POCT-GLUCOSE [id number] 01:31 :00 Test Item Value Reference Range Comments POC-GLUCOSE METER (BEAKER) 271 mg/dL 70-110 TESTED AT [address] (test srgt=7188) [facility] [address] POCT-GLUCOSE [id number] 23:12:00 Test Item Value Reference Range Comments POC-GLUCOSE METER (BEAKER) 294 mg/dL 70-110 TESTED AT [address] (test rvkw=8963) [facility] [address] [id number] 17:52:00 Test Item Value Reference Range Comments MAGNESIUM (BEAKER) (test ikul=626) 2.1 mg/dL 1.6-2.6 BASIC METABOLIC [id number] 17:52:00 Test Item Value Reference Range Comments SODIUM (BEAKER) (test 148 meq/L 136-145 jvno=629) POTASSIUM (BEAKER) (test 3.5 meq/L 3.5-5.1 kgmn=793) CHLORIDE (BEAKER) (test 115 meq/L 98-107 xrkm=759) CO2 (BEAKER) (test 21 meq/L 22-29 lzun=833) BLOOD UREA NITROGEN 19 mg/dL 7-21 (BEAKER) (test nebg=769) CREATININE (BEAKER) (test 0.85 mg/dL 0.57-1.25 motl=850) GLUCOSE RANDOM (BEAKER) 138 mg/dL 70-105 (test xuju=400) CALCIUM (BEAKER) (test 8.2 mg/dL 8.4-10.2 jpdb=404) EGFR (BEAKER) (test 69 mL/min/1.73 sq m ESTIMATED GFR IS NOT wlwo=4111) ACCURATE CREATININE CLEARANCE IN PREDICTING GLOMERULAR FILTRATION RATE. ESTIMATED GFR IS NOT APPLICABLE FOR DIALYSIS PATIENTS. POCT-GLUCOSE [id number] 15:11:00 Test Item Value Reference Range Comments POC-GLUCOSE METER (BEAKER) 120 mg/dL 70-110 TESTED AT [address] (test hppv=7482) [place] [id number] POCT-GLUCOSE [id number] 13:28:00 Test Item Value Reference Range Comments POC-GLUCOSE METER (BEAKER) 72 mg/dL 70-110 TESTED AT [address] (test rdzz=4547) [place] [address] POCT-GLUCOSE [id number] 12:16:00 Test Item Value Reference Range Comments POC-GLUCOSE METER (BEAKER) 111 mg/dL 70-110 TESTED AT [address] (test crpb=0653) [place] [address] POCT-GLUCOSE [id number] 12:16:00 Test Item Value Reference Range Comments POC-GLUCOSE METER (BEAKER) 203 mg/dL 70-110 TESTED AT [address] (test ncoq=8366) [place] [address] POCT-GLUCOSE [id number] 10:59:00 Test Item Value Reference Range Comments POC-GLUCOSE METER (BEAKER) 144 mg/dL 70-110 TESTED AT [address] (test qurd=8329) [place] [address] POCT-GLUCOSE [id number] 09:25:00 Test Item Value Reference Range Comments POC-GLUCOSE METER (BEAKER) 260 mg/dL 70-110 TESTED AT [address] (test fniu=5992) [place] [address] POCT-GLUCOSE [id number] 09:17:00 Test Item Value Reference Range Comments POC-GLUCOSE METER (BEAKER) 273 mg/dL 70-110 [facility] [address] [facility] (test lwwi=6965) [facility] [address] BASIC METABOLIC [id number] 05:55:00 Test Item Value Reference Range Comments SODIUM (BEAKER) (test 153 meq/L 136-145 emso=093) POTASSIUM (BEAKER) (test 4.0 meq/L 3.5-5.1 rizm=273) CHLORIDE (BEAKER) (test 118 meq/L 98-107 pplo=357) CO2 (BEAKER) (test 22 meq/L 22-29 slqk=234) BLOOD UREA NITROGEN 21 mg/dL 7-21 (BEAKER) (test ernz=777) CREATININE (BEAKER) (test 1.02 mg/dL 0.57-1.25 xrha=118) GLUCOSE RANDOM (BEAKER) 266 mg/dL 70-105 (test egmw=352) CALCIUM (BEAKER) (test 8.3 mg/dL 8.4-10.2 ijgv=085) EGFR (BEAKER) (test 56 mL/min/1.73 sq m ESTIMATED GFR IS NOT fuub=1714) ACCURATE CREATININE CLEARANCE IN PREDICTING GLOMERULAR FILTRATION RATE. ESTIMATED GFR IS NOT APPLICABLE FOR DIALYSIS PATIENTS. CALCIUM, [id number] 05:55:00 Test Item Value Reference Range Comments CALCIUM IONIZED (BEAKER) (test ljcr=827) 1.09 mmol/L 1.12-1.27 PH, BLOOD (BEAKER) (test subk=1775) 7.41 [id number] 05:54:00 Test Item Value Reference Range Comments MAGNESIUM (BEAKER) (test kmsx=252) 2.1 mg/dL 1.6-2.6 HEPATIC FUNCTION [id number] 05:54:00 Test Item Value Reference Range Comments TOTAL PROTEIN (BEAKER) (test dhgd=937) 5.8 gm/dL 6.0-8.3 ALBUMIN (BEAKER) (test cdsk=0132) 3.4 g/dL 3.5-5.0 BILIRUBIN TOTAL (BEAKER) (test zjra=764) 1.5 mg/dL 0.2-1.2 BILIRUBIN DIRECT (BEAKER) (test ngsz=897) 0.9 mg/dL 0.1-0.5 ALKALINE PHOSPHATASE (BEAKER) (test jkhh=923) 70 U/L 40-150 AST (SGOT) (BEAKER) (test koyq=722) 689 U/L 5-34 ALT (SGPT) (BEAKER) (test lcuo=054) 1368 U/L 6-55 POCT-GLUCOSE [id number] 05:30:00 Test Item Value Reference Range Comments POC-GLUCOSE METER (BEAKER) 175 mg/dL 70-110 TESTED AT [facility] [address] [facility] (test tsvg=0666) [place] [address] CBC W/PLT COUNT & AUTO [id number] 05:27:00 Test Item Value Reference Range Comments WHITE BLOOD CELL COUNT (BEAKER) (test sghs=499) 7.3 K/ L 3.5-10.5 RED BLOOD CELL COUNT (BEAKER) (test egax=853) 3.16 M/ L 3.93-5.22 HEMOGLOBIN (BEAKER) (test jrbr=387) 9.6 GM/DL 11.2-15.7 HEMATOCRIT (BEAKER) (test mvqt=055) 29.8 % 34.1-44.9 MEAN CORPUSCULAR VOLUME (BEAKER) (test qnlg=562) 94.3 fL 79.4-94.8 MEAN CORPUSCULAR HEMOGLOBIN (BEAKER) (test 30.4 pg 25.6-32.2 elrc=744) MEAN CORPUSCULAR HEMOGLOBIN CONC (BEAKER) (test 32.2 GM/DL 32.2-35.5 nzkn=620) RED CELL DISTRIBUTION WIDTH (BEAKER) (test 13.2 % 11.7-14.4 qccg=558) PLATELET COUNT (BEAKER) (test stbh=428) 106 K/CU MM 150-450 MEAN PLATELET VOLUME (BEAKER) (test zphv=914) 12.1 fL 9.4-12.3 NUCLEATED RED BLOOD CELLS (BEAKER) (test 0 /100 WBC 0-0 pkhe=760) NEUTROPHILS RELATIVE PERCENT (BEAKER) (test 69 % wpbz=251) LYMPHOCYTES RELATIVE PERCENT (BEAKER) (test 22 % isoy=030) MONOCYTES RELATIVE PERCENT (BEAKER) (test 6 % amta=768) EOSINOPHILS RELATIVE PERCENT (BEAKER) (test 2 % kzes=312) BASOPHILS RELATIVE PERCENT (BEAKER) (test 1 % hlrb=586) NEUTROPHILS ABSOLUTE COUNT (BEAKER) (test 5.04 K/ L 1.56-6.13 pgew=251) LYMPHOCYTES ABSOLUTE COUNT (BEAKER) (test 1.56 K/ L 1.18-3.74 vgzo=491) MONOCYTES ABSOLUTE COUNT (BEAKER) (test 0.46 K/ L 0.24-0.36 bhbg=039) EOSINOPHILS ABSOLUTE COUNT (BEAKER) (test 0.11 K/ L 0.04-0.36 dikn=233) BASOPHILS ABSOLUTE COUNT (BEAKER) (test 0.04 K/ L 0.01-0.08 mhan=049) IMMATURE GRANULOCYTES-RELATIVE PERCENT (BEAKER) 1 % 0-1 (test neqy=3387) POCT-GLUCOSE [id number] 04:13:00 Test Item Value Reference Range Comments POC-GLUCOSE METER (BEAKER) 116 mg/dL 70-110 TESTED AT [address] (test fykr=5200) [facility] [address] RAD, CHEST, 1 VIEW, NON [id number] 01:31:00Reason for exam:->pl effusionShould this be performed at the bedside?->YesIs the patient ? ->UnknownFINAL REPORT CLINICAL INDICATION: Pleural effusion Comparison: 06/03/2017 The patient is rotated to the right. The cardiomediastinal contours are grossly stable. Central pulmonary vascular congestion and bilateral parenchymal opacities are similar to previous. There is no pneumothorax. A left chest tube has been removed. Remaining support lines are stable. Signed: Moshe Dumont MDReport Verified Date/Time: 06/04/2017 01:31 :52 Reading Location: [address] RAD, ABDOMEN/KUB, 1 VIEW [id number] 01:30:00Reason for exam:->Corpak placementShould this be performed at the bedside?->YesFINAL REPORT RAD, ABDOMEN/KUB, 1 VIEW AP COMPARISON: 2016 INDICATION:Corpak placement IMPRESSION:A feeding tube has been placed. The distal tip projects in the region ofthe antrum/pylorus. The guidewire is in place. Midline surgical drain is no longer identified. The visible bowel gas pattern is unremarkable. Signed: JR Christa, Ajay Pena Verified Date/Time: 06/04/2017 01:30:31 Reading Location: [facility] C013Y CT Body Reading Room BASIC METABOLIC [id number] 18:33:00 Test Item Value Reference Range Comments SODIUM (BEAKER) (test 154 meq/L 136-145 czsz=265) POTASSIUM (BEAKER) (test 3.7 meq/L 3.5-5.1 tgiq=981) CHLORIDE (BEAKER) (test 123 meq/L 98-107 vmxt=265) CO2 (BEAKER) (test 22 meq/L 22-29 ahhj=835) BLOOD UREA NITROGEN 24 mg/dL 7-21 (BEAKER) (test nwxy=880) CREATININE (BEAKER) (test 1.08 mg/dL 0.57-1.25 ykyw=733) GLUCOSE RANDOM (BEAKER) 78 mg/dL 70-105 (test uqhy=693) CALCIUM (BEAKER) (test 7.2 mg/dL 8.4-10.2 faoz=467) EGFR (BEAKER) (test 52 mL/min/1.73 sq m ESTIMATED GFR IS NOT vfcb=4281) ACCURATE CREATININE CLEARANCE IN PREDICTING GLOMERULAR FILTRATION RATE. ESTIMATED GFR IS NOT APPLICABLE FOR DIALYSIS PATIENTS. [id number] 18:26:00 Test Item Value Reference Range Comments MAGNESIUM (BEAKER) (test alti=684) 2.2 mg/dL 1.6-2.6 POCT-GLUCOSE [id number] 17:44:00 Test Item Value Reference Range Comments POC-GLUCOSE METER (BEAKER) 97 mg/dL 70-110 TESTED AT [address] (test nqxs=0033) [place] [address] POCT-GLUCOSE [id number] 16:03:00 Test Item Value Reference Range Comments POC-GLUCOSE METER (BEAKER) 152 mg/dL 70-110 TESTED AT [address] (test upfo=4974) [place] [address] [id number] 12:28:00 Test Item Value Reference Range Comments FERRITIN (BEAKER) (test pjvq=907) 6328 ng/mL 5-275 POCT-GLUCOSE [id number] 11:42:00 Test Item Value Reference Range Comments POC-GLUCOSE METER (BEAKER) 192 mg/dL 70-110 TESTED AT [address] (test mocb=0416) [place] [address] POCT-GLUCOSE [id number] 11:42:00 Test Item Value Reference Range Comments POC-GLUCOSE METER (BEAKER) 204 mg/dL 70-110 TESTED AT [address] (test gytb=9397) [place] [address] POCT-GLUCOSE [id number] 11:42:00 Test Item Value Reference Range Comments POC-GLUCOSE METER (BEAKER) 190 mg/dL 70-110 TESTED AT [address] (test qdlo=2116) [place] [address] HEPATITIS B SURFACE [id number] 10:47:00 Test Item Value Reference Range Comments HEPATITIS B SURFACE ANTIBODY (BEAKER) (test < mIU/mL <8.0 yztx=820) HEPATITIS B CORE ANTIBODY, [id number] 10:43:00 Test Item Value Reference Range Comments HEPATITIS B CORE IGM ANTIBODY (BEAKER) (test Nonreactive Nonreactive cuqy=400) HEPATITIS A ANTIBODY, [id number] 10:43:00 Test Item Value Reference Range Comments HEPATITIS A IGM ANTIBODY (BEAKER) (test Nonreactive Nonreactive ehkt=945) HEPATITIS B CORE ANTIBODY, [id number] 10:43:00 Test Item Value Reference Range Comments HEPATITIS B CORE TOTAL ANTIBODY (BEAKER) (test Nonreactive Nonreactive qzgu=827) HEPATITIS B SURFACE [id number] 10:18:00 Test Item Value Reference Range Comments HEPATITIS B SURFACE ANTIGEN (2) (BEAKER) (test Nonreactive Nonreactive qhxa=0665) HEPATITIS C [id number] 10:18:00 Test Item Value Reference Range Comments HEPATITIS C ANTIBODY (BEAKER) (test tmyy=017) Nonreactive Nonreactive B-TYPE NATRIURETIC FACTOR (BNP)2017-06-03 10:02:00 Test Item Value Reference Range Comments B-TYPE NATRIURETIC PEPTIDE (BEAKER) (test 919 pg/mL 0-100 ymfr=082) [id number] 10:01:00 Test Item Value Reference Range Comments MAGNESIUM (BEAKER) (test ybjy=315) 2.2 mg/dL 1.6-2.6 BASIC METABOLIC [id number] 10:01:00 Test Item Value Reference Range Comments SODIUM (BEAKER) (test 147 meq/L 136-145 ujok=642) POTASSIUM (BEAKER) (test 3.9 meq/L 3.5-5.1 gygw=488) CHLORIDE (BEAKER) (test 118 meq/L 98-107 svbi=227) CO2 (BEAKER) (test 20 meq/L 22-29 gbgx=066) BLOOD UREA NITROGEN 26 mg/dL 7-21 (BEAKER) (test odzp=289) CREATININE (BEAKER) (test 1.24 mg/dL 0.57-1.25 hrwp=665) GLUCOSE RANDOM (BEAKER) 189 mg/dL 70-105 (test abur=214) CALCIUM (BEAKER) (test 8.1 mg/dL 8.4-10.2 kthr=533) EGFR (BEAKER) (test 45 mL/min/1.73 sq m ESTIMATED GFR IS NOT bffz=4823) ACCURATE CREATININE CLEARANCE IN PREDICTING GLOMERULAR FILTRATION RATE. ESTIMATED GFR IS NOT APPLICABLE FOR DIALYSIS PATIENTS. U/S, HEPATIC PORTAL VESSEL WITH [id number] 09:59:00Reason for exam:-> acute liver failureShould this be performed at the bedside?->YesFINAL REPORT Abdominal ultrasound dated 06/03/2017 Comment: Real- time transabdominal ultrasound of the right upper quadrant abdomen was performed. Liver is normal in size and measures 14 cm in length. The echogenicity of the liver is increased. No focal lesion is noted in the liver. Gallbladder is distended. Sludge and gallstones are seen in the gallbladder. No biliary dilatation is seen. There is minimal pericholecystic fluid collection in the gallbladder without thickening. No sonographic Hester's sign is present. Common bile duct measures visualized. Main portal vein measures 9 mm in diameter. Pancreas is suboptimally seen. Right kidney measures 12.1 x 4.2 x 5.3 cm. Echogenicity of the right kidney is normal. No ascites is present in the abdomen. There is small right pleural effusion. Abdominal aorta is normal in caliber. IVC and Hepatic veins are patent. Real-time Color and Spectral doppler ultrasound of the abdomen was performed. Main portal vein measures 0.9cm in diameter. There is hepatopetal flow in the main portal vein with velocity hepatopedal cm/sec.Right intrahepatic vein is patent with velocity 18.1 cm/sec. Left and left portal veins are patent.Proper hepatic artery is patent with resistive index of 0.6. IVC, right HV, middle HV and left HV are patent. Impression: 1. Echogenic liver suggestive of fatty hepatic infiltrate.2. Cholelithiasis and gallbladder sludge without. Gallbladder wall thickening and pericholecystic fluid collection may represent cholecystitis. Please correlate clinically or further with HIDA scan.3. Small right pleural effusion. 4. Patent hepatic artery and portal vein. Signed: Garrison Cervantes Verified Date/Time:06/03/2017 09:59:27 Reading Location: [facility] C013Y CT Body Reading Room Electronically signed by: GARRISON CERVANTES M.D. on 2016 09:59 AMCALCIUM, [id number] 09:35:00 Test Item Value Reference Range Comments CALCIUM IONIZED (BEAKER) (test btym=902) 1.05 mmol/L 1.12-1.27 PH, BLOOD (BEAKER) (test axsx=0050) 7.52 POCT-GLUCOSE [id number] 07:04:00 Test Item Value Reference Range Comments POC-GLUCOSE METER (BEAKER) 137 mg/dL 70-110 TESTED AT [address] (test mzez=2570) [facility] [address] POCT-GLUCOSE [id number] 06:07:00 Test Item Value Reference Range Comments POC-GLUCOSE METER (BEAKER) 100 mg/dL 70-110 TESTED AT [address] (test rpcb=1714) [facility] [address] POCT-GLUCOSE [id number] 06:07:00 Test Item Value Reference Range Comments POC-GLUCOSE METER (BEAKER) 163 mg/dL 70-110 TESTED AT [address] (test ywcb=3825) [facility] [address] POCT-GLUCOSE [id number] 06:07:00 Test Item Value Reference Range Comments POC-GLUCOSE METER (BEAKER) 234 mg/dL 70-110 TESTED AT [facility] [address] (test insy=3990) [place] [address] VANCOMYCIN LEVEL, [id number] 04:55:00 Test Item Value Reference Range Comments VANCOMYCIN TROUGH (BEAKER) (test xxyr=571) < ug/mL 10.0-20.0 OXYGEN SATURATION, [id number] 04:52:00 Test Item Value Reference Range Comments O2 SATURATION (MEASURED) (BEAKER) (test rnqs=7639) 63.4 % BLOOD GAS, [id number] 04:41:00 Test Item Value Reference Range Comments PH ARTERIAL (BEAKER) (test xrrj=230) 7.47 7.35-7.45 PCO2 ARTERIAL (BEAKER) (test ngfv=394) 28 mmHg 35-45 PO2 ARTERIAL (BEAKER) (test jipv=723) 205 mmHg 80-90 O2 SATURATION ARTERIAL (BEAKER) (test erpb=517) 99.5 % 96.0-97.0 HCO3 ARTERIAL (BEAKER) (test vtdm=900) 20 mmol/L 21-29 BASE EXCESS ARTERIAL (BEAKER) (test hoyw=225) -3.1 mmol/L -2.0-3.0 PATIENT TEMPERATURE (BEAKER) (test fzwu=0062) 37.5 C FIO2 (BEAKER) (test anal=3430) 100.0 % CALCIUM, [id number] 04:41:00 Test Item Value Reference Range Comments CALCIUM IONIZED (BEAKER) (test jcwg=253) 1.04 mmol/L 1.12-1.27 PH, BLOOD (BEAKER) (test caut=8999) 7.48 [id number] 04:25:00 Test Item Value Reference Range Comments AMMONIA (BEAKER) (test 66 mol/L 18-72 Specimen slightly hemolyzed cjjj=116) HEPATIC FUNCTION [id number] 04:25:00 Test Item Value Reference Range Comments TOTAL PROTEIN (BEAKER) (test 5.4 gm/dL 6.0-8.3 Specimen slightly hemolyzed tfjn=309) ALBUMIN (BEAKER) (test 3.2 g/dL 3.5-5.0 Specimen slightly hemolyzed mknk=2338) BILIRUBIN TOTAL (BEAKER) (test 1.0 mg/dL 0.2-1.2 Specimen slightly hemolyzed xvly=034) BILIRUBIN DIRECT (BEAKER) (test 0.5 mg/dL 0.1-0.5 Specimen slightly hemolyzed vvjr=133) ALKALINE PHOSPHATASE (BEAKER) 60 U/L 40-150 (test grxa=846) AST (SGOT) (BEAKER) (test 1427 U/L 5-34 Specimen slightly hemolyzed cwez=249) ALT (SGPT) (BEAKER) (test 1622 U/L 6-55 Specimen slightly hemolyzed owru=459) [id number] 04:24:00 Test Item Value Reference Range Comments MAGNESIUM (BEAKER) (test 2.5 mg/dL 1.6-2.6 Specimen slightly hemolyzed zunq=296) [id number] 04:24:00 Test Item Value Reference Range Comments PHOSPHORUS (BEAKER) (test 2.5 mg/dL 2.3-4.7 Specimen slightly hemolyzed mcwj=083) BASIC METABOLIC [id number] 04:24:00 Test Item Value Reference Range Comments SODIUM (BEAKER) (test 147 meq/L 136-145 jlst=103) POTASSIUM (BEAKER) (test 4.2 meq/L 3.5-5.1 Specimen slightly eghl=398) hemolyzed CHLORIDE (BEAKER) (test 119 meq/L 98-107 tdkx=633) CO2 (BEAKER) (test 17 meq/L 22-29 oizh=765) BLOOD UREA NITROGEN 28 mg/dL 7-21 (BEAKER) (test redp=228) CREATININE (BEAKER) (test 1.33 mg/dL 0.57-1.25 Specimen slightly lnca=300) hemolyzed GLUCOSE RANDOM (BEAKER) 208 mg/dL 70-105 (test spyd=761) CALCIUM (BEAKER) (test 8.0 mg/dL 8.4-10.2 lvom=385) EGFR (BEAKER) (test 41 mL/min/1.73 sq m ESTIMATED GFR IS NOT ftus=7639) ACCURATE CREATININE CLEARANCE IN PREDICTING GLOMERULAR FILTRATION RATE. ESTIMATED GFR IS NOT APPLICABLE FOR DIALYSIS PATIENTS. CBC W/PLT COUNT & AUTO [id number] 04:20:00 Test Item Value Reference Range Comments WHITE BLOOD CELL COUNT (BEAKER) (test bkyv=505) 8.4 K/ L 3.5-10.5 RED BLOOD CELL COUNT (BEAKER) (test alxr=222) 2.92 M/ L 3.93-5.22 HEMOGLOBIN (BEAKER) (test gijg=664) 8.9 GM/DL 11.2-15.7 HEMATOCRIT (BEAKER) (test uffk=085) 27.1 % 34.1-44.9 MEAN CORPUSCULAR VOLUME (BEAKER) (test iztw=115) 92.8 fL 79.4-94.8 MEAN CORPUSCULAR HEMOGLOBIN (BEAKER) (test 30.5 pg 25.6-32.2 xzgy=130) MEAN CORPUSCULAR HEMOGLOBIN CONC (BEAKER) (test 32.8 GM/DL 32.2-35.5 vndk=115) RED CELL DISTRIBUTION WIDTH (BEAKER) (test 13.8 % 11.7-14.4 hcfm=310) PLATELET COUNT (BEAKER) (test uzjq=790) 89 K/CU MM 150-450 MEAN PLATELET VOLUME (BEAKER) (test jzbn=737) 12.0 fL 9.4-12.3 NUCLEATED RED BLOOD CELLS (BEAKER) (test 1 /100 WBC 0-0 wjsn=428) NEUTROPHILS RELATIVE PERCENT (BEAKER) (test 74 % oglv=240) LYMPHOCYTES RELATIVE PERCENT (BEAKER) (test 20 % dcrf=027) MONOCYTES RELATIVE PERCENT (BEAKER) (test 5 % zviv=052) EOSINOPHILS RELATIVE PERCENT (BEAKER) (test 0 % fgek=046) BASOPHILS RELATIVE PERCENT (BEAKER) (test 0 % lwse=342) NEUTROPHILS ABSOLUTE COUNT (BEAKER) (test 6.16 K/ L 1.56-6.13 jvjg=101) LYMPHOCYTES ABSOLUTE COUNT (BEAKER) (test 1.70 K/ L 1.18-3.74 weuk=503) MONOCYTES ABSOLUTE COUNT (BEAKER) (test smzk=765) 0.40 K/ L 0.24-0.36 EOSINOPHILS ABSOLUTE COUNT (BEAKER) (test 0.03 K/ L 0.04-0.36 meev=334) BASOPHILS ABSOLUTE COUNT (BEAKER) (test pjxu=248) 0.02 K/ L 0.01-0.08 IMMATURE GRANULOCYTES-RELATIVE PERCENT (BEAKER) 1 % 0-1 (test jshm=7966) RAD, CHEST, 1 VIEW, NON [id number] 01:31:00Reason for exam:->s/p cardiac surgeryFINAL REPORT RAD, CHEST, 1 VIEW, NON DEPT INDICATION: s/p cardiac surgery COMPARISON: Four hours prior FINDINGS: Portable frontal view of the chest. IMPRESSION: Support Lines:A feeding tube traverses the thorax. The guidewire is in place. Multilumen right IJ central venous catheter is stable. Lungs and pleura: Mild persistent interstitial coarsening. No new effusion. No pneumothorax.Heart and mediastinum: Stable contours. Stable surgical changes.Additional findings: None. Signed: JR Goodwin Robert MDReport Verified Date/Time: 06/03/2017 01:31:20 Reading Location: [address] Body Reading Room RAD, ABDOMEN/KUB, 1 VIEW [id number] 01:29:00Reason for exam:->corpak placementShould this be performed at the bedside?->YesFINAL REPORT RAD, ABDOMEN/KUB, 1 VIEW AP COMPARISON: None INDICATION: corpak placement IMPRESSION:A feeding tube has been placed. The distal tip completes one loop in the proximal abdomen. The guidewire remains in place. The visible bowel gas pattern is unremarkable. Signed: JR Goodwin Robert MDReport Verified Date/Time: 06/03/2017 01:29: 37 Reading Location: [facility] C0[facility] CT Body Reading Room POCT-GLUCOSE [id number] 00 :11:00 Test Item Value Reference Range Comments POC-GLUCOSE METER (BEAKER) 155 mg/dL 70-110 TESTED AT [address] (test ppza=8058) [facility] [address] POCT-GLUCOSE [id number] 23:22:00 Test Item Value Reference Range Comments POC-GLUCOSE METER (BEAKER) 123 mg/dL 70-110 TESTED AT [address] (test mynw=5678) [facility] [address] POCT-GLUCOSE [id number] 23:22:00 Test Item Value Reference Range Comments POC-GLUCOSE METER (BEAKER) 150 mg/dL 70-110 TESTED AT [facility] [address] (test ogio=4631) [facility] [address] RAD, CHEST, 1 VIEW, NON [id number] 21:42:00Reason for exam:->chest tube placementShould this be performed at the bedside?->YesFINAL REPORT HISTORY : chest tube placement. Comparison: 06/02/2017 performedearlier Comment: Single portable view of the chest was obtained. The cardiac silhouette size is enlarged. Support lines and tubes are unchanged. No pneumothorax is seen. There is a tortuous/ectatic thoracic aorta. There is some diffuse interstitial prominence which is unchanged. Some patchy pulmonaryopacities are also unchanged. There may be a small right-sided pleural effusion. Signed: Aleksandr Yo MDReport Verified Date/Time: 06/02/2017 21:42: 25 Reading Location: [facility] C013W Consult Reading Room [id number] 21:33:00 Test Item Value Reference Range Comments POTASSIUM (BEAKER) (test paon=534) 3.5 meq/L 3.5-5.1 [id number] 21:33:00 Test Item Value Reference Range Comments MAGNESIUM (BEAKER) (test qpzs=551) 1.9 mg/dL 1.6-2.6 POTASSIUM-STAT [id number] 21:17:00 Test Item Value Reference Range Comments POTASSIUM (BEAKER) (test hizv=887) 3.2 meq/L 3.6-5.5 BLOOD GAS, [id number] 21:15:00 Test Item Value Reference Range Comments PH ARTERIAL (BEAKER) (test mtwn=361) 7.47 7.35-7.45 PCO2 ARTERIAL (BEAKER) (test ivsb=537) 29 mmHg 35-45 PO2 ARTERIAL (BEAKER) (test cqyu=201) 108 mmHg 80-90 O2 SATURATION ARTERIAL (BEAKER) (test zden=540) 98.3 % 96.0-97.0 HCO3 ARTERIAL (BEAKER) (test nudm=242) 20 mmol/L 21-29 BASE EXCESS ARTERIAL (BEAKER) (test mavg=011) -2.8 mmol/L -2.0-3.0 PATIENT TEMPERATURE (BEAKER) (test kfgd=3745) 37.0 C FIO2 (BEAKER) (test brut=0054) 100.0 % CALCIUM, [id number] 21:14:00 Test Item Value Reference Range Comments CALCIUM IONIZED (BEAKER) (test zgtc=555) 1.12 mmol/L 1.12-1.27 PH, BLOOD (BEAKER) (test iblg=0892) 7.47 [id number] 20:11:00 Test Item Value Reference Range Comments PROCALCITONIN (BEAKER) (test mjus=4686) 1.58 ng/mL <0.05 SEPSIS RISK (ng/mL)Low: 0.05-0.50Intermediate: 0.51-2.00High: & gt;=2.01POCT-GLUCOSE [id number] 19:46:00 Test Item Value Reference Range Comments POC-GLUCOSE METER (BEAKER) 135 mg/dL 70-110 TESTED AT [address] (test ynkd=5335) [place] [address] POCT-GLUCOSE [id number] 18:21:00 Test Item Value Reference Range Comments POC-GLUCOSE METER (BEAKER) 151 mg/dL 70-110 TESTED AT [address] (test xfks=4506) [place] [address] POCT-GLUCOSE [id number] 17:06:00 Test Item Value Reference Range Comments POC-GLUCOSE METER (BEAKER) 123 mg/dL 70-110 TESTED AT [address] (test disb=0725) [place] [address] BASIC METABOLIC [id number] 16:34:00 Test Item Value Reference Range Comments SODIUM (BEAKER) (test 147 meq/L 136-145 ownb=906) POTASSIUM (BEAKER) (test 3.6 meq/L 3.5-5.1 evec=445) CHLORIDE (BEAKER) (test 120 meq/L 98-107 ewbf=856) CO2 (BEAKER) (test 17 meq/L 22-29 jcoa=072) BLOOD UREA NITROGEN 28 mg/dL 7-21 (BEAKER) (test niom=741) CREATININE (BEAKER) (test 1.34 mg/dL 0.57-1.25 ddkf=559) GLUCOSE RANDOM (BEAKER) 138 mg/dL 70-105 (test llli=945) CALCIUM (BEAKER) (test 8.1 mg/dL 8.4-10.2 aoeq=708) EGFR (BEAKER) (test 41 mL/min/1.73 sq m ESTIMATED GFR IS NOT wihl=2691) ACCURATE CREATININE CLEARANCE IN PREDICTING GLOMERULAR FILTRATION RATE. ESTIMATED GFR IS NOT APPLICABLE FOR DIALYSIS PATIENTS. POCT-GLUCOSE [id number] 16:17:00 Test Item Value Reference Range Comments POC-GLUCOSE METER (BEAKER) 139 mg/dL 70-110 TESTED AT [facility] [address] [facility] (test ejkx=9674) [facility] [address] POCT-GLUCOSE [id number] 16:17:00 Test Item Value Reference Range Comments POC-GLUCOSE METER (BEAKER) 169 mg/dL 70-110 TESTED AT [address] (test izpy=3138) [facility] [address] GLUCOSE-STAT [id number] 15:54:00 Test Item Value Reference Range Comments GLUCOSE RANDOM (BEAKER) (test hkio=039) 145 mg/dL 70-110 HGB/HCT (H&H) - STAT [id number] 15:54:00 Test Item Value Reference Range Comments HEMOGLOBIN (BEAKER) (test gaqj=330) 10.1 g/dL 12.0-15.0 HEMATOCRIT (BEAKER) (test rydp=104) 30.0 % 36.0-45.0 CALCIUM, [id number] 15:54:00 Test Item Value Reference Range Comments CALCIUM IONIZED (BEAKER) (test zcoy=989) 1.10 mmol/L 1.12-1.27 PH, BLOOD (BEAKER) (test cfza=5978) 7.45 POTASSIUM-STAT [id number] 15:53:00 Test Item Value Reference Range Comments POTASSIUM (BEAKER) (test ohzp=086) 3.5 meq/L 3.6-5.5 RAD, CHEST, 1 VIEW, NON [id number] 15:41:00Reason for exam:->post opIs the patient ?->UnknownShould this be performed at the bedside?-> YesFINAL REPORT AP chest HISTORY: Postoperative COMPARISON: 06/02/2017 IMPRESSION:Right IJ central venous catheter present. Cardiomegaly. Left pleural drain present without pneumothorax. Diffuse interstitial edema, increased from previous. Signed: Jose Shine MDReport Verified Date/Time: 06/02/2017 15:41:29 Reading Location: [address] Radiology Reading Room GLUCOSE-STAT [id number] 12:21:00 Test Item Value Reference Range Comments GLUCOSE RANDOM (BEAKER) (test rrpq=791) 172 mg/dL 70-110 POTASSIUM-STAT [id number] 12:21:00 Test Item Value Reference Range Comments POTASSIUM (BEAKER) (test ovwz=988) 3.3 meq/L 3.6-5.5 HGB/HCT (H&H) - STAT [id number] 12:21:00 Test Item Value Reference Range Comments HEMOGLOBIN (BEAKER) (test ctbq=838) 9.8 g/dL 12.0-15.0 HEMATOCRIT (BEAKER) (test hirw=855) 29.0 % 36.0-45.0 BLOOD GAS, [id number] 12:20:00 Test Item Value Reference Range Comments PH ARTERIAL (BEAKER) (test djjt=393) 7.44 7.35-7.45 PCO2 ARTERIAL (BEAKER) (test hvuk=064) 30 mmHg 35-45 PO2 ARTERIAL (BEAKER) (test mhcp=635) 67 mmHg 80-90 O2 SATURATION ARTERIAL (BEAKER) (test yydx=228) 94.1 % 96.0-97.0 HCO3 ARTERIAL (BEAKER) (test itri=038) 20 mmol/L 21-29 BASE EXCESS ARTERIAL (BEAKER) (test onyc=273) -3.1 mmol/L -2.0-3.0 PATIENT TEMPERATURE (BEAKER) (test ynle=1839) 37.2 C FIO2 (BEAKER) (test eywm=5044) 100.0 % SODIUM NA-STAT [id number] 12:19:00 Test Item Value Reference Range Comments SODIUM (BEAKER) (test ajrt=738) 143 meq/L 135-148 [id number] 10:45:00 Test Item Value Reference Range Comments POTASSIUM (BEAKER) (test lqxl=168) 3.9 meq/L 3.5-5.1 PRN - repeat glucose levels every 1 hour or as specified by insulin titration orders until glucose level is less than 450 mg/dLCheck Serum Potassium level 2 hours after oral potassium replacement completed or 30 min after intravenous potassium replacement.[id number] 10:45:00 Test Item Value Reference Range Comments GLUCOSE RANDOM (BEAKER) (test knfh=877) 150 mg/dL 70-105 PRN - repeat glucose levels every 1 hour or as specified by insulin titration orders until glucose level is less than 450 mg/dLCheck Serum Potassium level 2 hours after oral potassium replacement completed or 30 min after intravenous potassium replacement.POCT-GLUCOSE [id number] 07:31:00 Test Item Value Reference Range Comments POC-GLUCOSE METER (ANAMAKER) 237 mg/dL 70-110 TESTED AT [address] (test pupl=2949) [facility] [address] RAD, CHEST, 1 VIEW, NON [id number] 05:25:00Reason for exam:->s/p cardiac surgeryFINAL REPORT RAD, CHEST, 1 VIEW, NON DEPT INDICATION: s/p cardiac surgery COMPARISON: Prior day's exam FINDINGS: Portable frontal view of the chest. IMPRESSION: Support Lines:Interval extubation and removal of the enteric tube. Stable right IJ central venous catheter. Thoracostomy tube on the left is unchanged. Lungs and pleura: Mild interstitial congestive changes. No significant interval improvement from the prior date. No pneumothorax.Heart and mediastinum: Stable contours. Stable surgical changes.Additional findings: None. Signed: JR Goodwin Robert MDReport Verified Date/Time: 06/02/2017 05:25:33 Reading Location: [facility] B1 C013Y CT Body Reading Room [id number] 04:37:00 Test Item Value Reference Range Comments PHOSPHORUS (BEAKER) (test ohzg=698) 3.6 mg/dL 2.3-4.7 [id number] 04:37:00 Test Item Value Reference Range Comments MAGNESIUM (BEAKER) (test qchj=311) 2.3 mg/dL 1.6-2.6 BASIC METABOLIC [id number] 04:37:00 Test Item Value Reference Range Comments SODIUM (BEAKER) (test 147 meq/L 136-145 wmlm=226) POTASSIUM (BEAKER) (test 4.2 meq/L 3.5-5.1 yhyo=535) CHLORIDE (BEAKER) (test 119 meq/L 98-107 rxdc=694) CO2 (BEAKER) (test 19 meq/L 22-29 kxvp=842) BLOOD UREA NITROGEN 26 mg/dL 7-21 (BEAKER) (test ujah=353) CREATININE (BEAKER) (test 1.50 mg/dL 0.57-1.25 rkeq=348) GLUCOSE RANDOM (BEAKER) 250 mg/dL 70-105 (test dvnj=890) CALCIUM (BEAKER) (test 8.3 mg/dL 8.4-10.2 itpj=626) EGFR (BEAKER) (test 36 mL/min/1.73 sq m ESTIMATED GFR IS NOT jhgd=9205) ACCURATE CREATININE CLEARANCE IN PREDICTING GLOMERULAR FILTRATION RATE. ESTIMATED GFR IS NOT APPLICABLE FOR DIALYSIS PATIENTS. CBC W/PLT COUNT & AUTO [id number] 04:04:00 Test Item Value Reference Range Comments WHITE BLOOD CELL COUNT (BEAKER) (test unzk=405) 9.3 K/ L 3.5-10.5 RED BLOOD CELL COUNT (BEAKER) (test kbjt=333) 2.57 M/ L 3.93-5.22 HEMOGLOBIN (BEAKER) (test vgyj=686) 7.7 GM/DL 11.2-15.7 HEMATOCRIT (BEAKER) (test eaqn=941) 24.7 % 34.1-44.9 MEAN CORPUSCULAR VOLUME (BEAKER) (test pbrz=215) 96.1 fL 79.4-94.8 MEAN CORPUSCULAR HEMOGLOBIN (BEAKER) (test 30.0 pg 25.6-32.2 vovz=485) MEAN CORPUSCULAR HEMOGLOBIN CONC (BEAKER) (test 31.2 GM/DL 32.2-35.5 atqn=356) RED CELL DISTRIBUTION WIDTH (BEAKER) (test 13.6 % 11.7-14.4 bujd=682) PLATELET COUNT (BEAKER) (test mpfk=522) 118 K/CU MM 150-450 MEAN PLATELET VOLUME (BEAKER) (test sbfd=431) 11.7 fL 9.4-12.3 NUCLEATED RED BLOOD CELLS (BEAKER) (test 0 /100 WBC 0-0 jxxv=427) NEUTROPHILS RELATIVE PERCENT (BEAKER) (test 73 % bpbw=235) LYMPHOCYTES RELATIVE PERCENT (BEAKER) (test 18 % dslf=719) MONOCYTES RELATIVE PERCENT (BEAKER) (test 9 % qazh=441) EOSINOPHILS RELATIVE PERCENT (BEAKER) (test 0 % sahr=368) BASOPHILS RELATIVE PERCENT (BEAKER) (test 0 % oeuo=488) NEUTROPHILS ABSOLUTE COUNT (BEAKER) (test 6.76 K/ L 1.56-6.13 qqim=433) LYMPHOCYTES ABSOLUTE COUNT (BEAKER) (test 1.65 K/ L 1.18-3.74 jtsj=090) MONOCYTES ABSOLUTE COUNT (BEAKER) (test 0.82 K/ L 0.24-0.36 jilf=629) EOSINOPHILS ABSOLUTE COUNT (BEAKER) (test 0.00 K/ L 0.04-0.36 jamm=261) BASOPHILS ABSOLUTE COUNT (BEAKER) (test 0.01 K/ L 0.01-0.08 hhlx=156) IMMATURE GRANULOCYTES-RELATIVE PERCENT (BEAKER) 1 % 0-1 (test fioa=5551) CALCIUM, [id number] 04:00:00 Test Item Value Reference Range Comments CALCIUM IONIZED (BEAKER) (test nqqv=141) 1.06 mmol/L 1.12-1.27 PH, BLOOD (BEAKER) (test qqaj=9461) 7.37 OXYGEN SATURATION, [id number] 03:58:00 Test Item Value Reference Range Comments O2 SATURATION (MEASURED) (BEAKER) (test tktw=3226) 56.3 % [id number] 21:03:00 Test Item Value Reference Range Comments MAGNESIUM (BEAKER) (test fvtu=095) 2.2 mg/dL 1.6-2.6 SODIUM NA-STAT [id number] 20:37:00 Test Item Value Reference Range Comments SODIUM (BEAKER) (test voea=581) 145 meq/L 135-148 POTASSIUM-STAT [id number] 20:37:00 Test Item Value Reference Range Comments POTASSIUM (BEAKER) (test vurp=355) 4.0 meq/L 3.6-5.5 BLOOD GAS, [id number] 20:37:00 Test Item Value Reference Range Comments PH ARTERIAL (BEAKER) (test iswi=730) 7.41 7.35-7.45 PCO2 ARTERIAL (BEAKER) (test pvxx=196) 32 mmHg 35-45 PO2 ARTERIAL (BEAKER) (test zqgy=403) 77 mmHg 80-90 O2 SATURATION ARTERIAL (BEAKER) (test ksni=185) 95.6 % 96.0-97.0 HCO3 ARTERIAL (BEAKER) (test szyd=241) 20 mmol/L 21-29 BASE EXCESS ARTERIAL (BEAKER) (test exqp=604) -4.1 mmol/L -2.0-3.0 PATIENT TEMPERATURE (BEAKER) (test xuaq=1319) 37.2 C FIO2 (BEAKER) (test tpme=2105) 44.0 % GLUCOSE-STAT [id number] 20:37:00 Test Item Value Reference Range Comments GLUCOSE RANDOM (BEAKER) (test ukbo=842) 221 mg/dL 70-110 HGB/HCT (H&H) - STAT [id number] 20:37:00 Test Item Value Reference Range Comments HEMOGLOBIN (BEAKER) (test jrtj=773) 8.3 g/dL 12.0-15.0 HEMATOCRIT (BEAKER) (test urlh=903) 24.0 % 36.0-45.0 BASIC METABOLIC [id number] 18:25:00 Test Item Value Reference Range Comments SODIUM (BEAKER) (test 149 meq/L 136-145 gyuc=615) POTASSIUM (BEAKER) (test 4.3 meq/L 3.5-5.1 wehy=963) CHLORIDE (BEAKER) (test 120 meq/L 98-107 qlpr=851) CO2 (BEAKER) (test 18 meq/L 22-29 ycsd=324) BLOOD UREA NITROGEN 16 mg/dL 7-21 (BEAKER) (test xqgl=862) CREATININE (BEAKER) (test 1.06 mg/dL 0.57-1.25 hayn=023) GLUCOSE RANDOM (BEAKER) 208 mg/dL 70-105 (test hwpn=917) CALCIUM (BEAKER) (test 8.4 mg/dL 8.4-10.2 zqyw=614) EGFR (BEAKER) (test 54 mL/min/1.73 sq m ESTIMATED GFR IS NOT dtvf=3856) ACCURATE CREATININE CLEARANCE IN PREDICTING GLOMERULAR FILTRATION RATE. ESTIMATED GFR IS NOT APPLICABLE FOR DIALYSIS PATIENTS. HEMOGLOBIN AND [id number] 17:58:00 Test Item Value Reference Range Comments HEMOGLOBIN (BEAKER) (test bepu=230) 8.0 GM/DL 11.2-15.7 HEMATOCRIT (BEAKER) (test vjfi=296) 25.5 % 34.1-44.9 [id number] 14:37:00 Test Item Value Reference Range Comments MAGNESIUM (BEAKER) (test azbz=305) 2.3 mg/dL 1.6-2.6 BASIC METABOLIC [id number] 14:37:00 Test Item Value Reference Range Comments SODIUM (BEAKER) (test 152 meq/L 136-145 dbaa=896) POTASSIUM (BEAKER) (test 4.8 meq/L 3.5-5.1 egcg=912) CHLORIDE (BEAKER) (test 123 meq/L 98-107 glrx=699) CO2 (BEAKER) (test 18 meq/L 22-29 fstz=025) BLOOD UREA NITROGEN 13 mg/dL 7-21 (BEAKER) (test rexv=951) CREATININE (BEAKER) (test 0.82 mg/dL 0.57-1.25 xcmf=505) GLUCOSE RANDOM (BEAKER) 176 mg/dL 70-105 (test ssmj=029) CALCIUM (BEAKER) (test 8.4 mg/dL 8.4-10.2 llaz=624) EGFR (BEAKER) (test 72 mL/min/1.73 sq m ESTIMATED GFR IS NOT pbrt=7600) ACCURATE CREATININE CLEARANCE IN PREDICTING GLOMERULAR FILTRATION RATE. ESTIMATED GFR IS NOT APPLICABLE FOR DIALYSIS PATIENTS. BLOOD GAS, [id number] 11:38:00 Test Item Value Reference Range Comments PH ARTERIAL (BEAKER) (test ayja=903) 7.39 7.35-7.45 PCO2 ARTERIAL (BEAKER) (test ooao=641) 38 mmHg 35-45 PO2 ARTERIAL (BEAKER) (test lhnb=275) 94 mmHg 80-90 O2 SATURATION ARTERIAL (BEAKER) (test hana=293) 97.1 % 96.0-97.0 HCO3 ARTERIAL (BEAKER) (test ehfa=714) 23 mmol/L 21-29 BASE EXCESS ARTERIAL (BEAKER) (test cfhv=758) -2.0 mmol/L -2.0-3.0 PATIENT TEMPERATURE (BEAKER) (test spuh=2183) 37.2 C FIO2 (BEAKER) (test oqyn=1966) 44.0 % [id number] 11:36:00 Test Item Value Reference Range Comments POTASSIUM (BEAKER) (test depa=706) 4.6 meq/L 3.5-5.1 PRN - repeat glucose levels every 1 hour or as specified by insulin titration orders until glucose level is less than 450 mg/dLCheck Serum Potassium level 2 hours after oral potassium replacement completed or 30 min after intravenous potassium replacement.[id number] 11:36:00 Test Item Value Reference Range Comments GLUCOSE RANDOM (BEAKER) (test auab=638) 101 mg/dL 70-105 PRN - repeat glucose levels every 1 hour or as specified by insulin titration orders until glucose level is less than 450 mg/dLCheck Serum Potassium level 2 hours after oral potassium replacement completed or 30 min after intravenous potassium replacement.BLOOD GAS, [id number] 08:36:00 Test Item Value Reference Range Comments PH ARTERIAL (BEAKER) (test qiew=646) 7.36 7.35-7.45 PCO2 ARTERIAL (BEAKER) (test zwjb=881) 41 mmHg 35-45 PO2 ARTERIAL (BEAKER) (test kitw=619) 93 mmHg 80-90 O2 SATURATION ARTERIAL (BEAKER) (test lvth=546) 96.5 % 96.0-97.0 HCO3 ARTERIAL (BEAKER) (test pecg=929) 22 mmol/L 21-29 BASE EXCESS ARTERIAL (BEAKER) (test hkow=827) -2.7 mmol/L -2.0-3.0 PATIENT TEMPERATURE (BEAKER) (test barz=0984) 37.7 C FIO2 (BEAKER) (test xsnb=6520) 40.0 % SODIUM NA-STAT [id number] 08:36:00 Test Item Value Reference Range Comments SODIUM (BEAKER) (test gayi=962) 151 meq/L 135-148 HGB/HCT (H&H) - STAT [id number] 08:36:00 Test Item Value Reference Range Comments HEMOGLOBIN (BEAKER) (test iyzw=896) 9.0 g/dL 12.0-15.0 HEMATOCRIT (BEAKER) (test pqav=054) 26.0 % 36.0-45.0 GLUCOSE-STAT [id number] 08:35:00 Test Item Value Reference Range Comments GLUCOSE RANDOM (BEAKER) (test kyul=512) 99 mg/dL 70-110 POTASSIUM-STAT [id number] 08:35:00 Test Item Value Reference Range Comments POTASSIUM (BEAKER) (test mkaa=651) 3.8 meq/L 3.6-5.5 [id number] 07:06:00 Test Item Value Reference Range Comments POTASSIUM (BEAKER) (test 4.0 meq/L 3.5-5.1 Specimen slightly hemolyzed teod=767) PRN - repeat potassium levels every 1 hour until glucose level is less than 450 mg/dLPOCT-GLUCOSE [id number] 06:24:00 Test Item Value Reference Range Comments POC-GLUCOSE METER (BEAKER) 225 mg/dL 70-110 TESTED AT [address] (test pejt=2029) [facility] [address] BLOOD GAS, [id number] 06:09:00 Test Item Value Reference Range Comments PH ARTERIAL (BEAKER) (test fzod=143) 7.37 7.35-7.45 PCO2 ARTERIAL (BEAKER) (test uhme=819) 47 mmHg 35-45 PO2 ARTERIAL (BEAKER) (test bqdm=881) 97 mmHg 80-90 O2 SATURATION ARTERIAL (BEAKER) (test vaou=712) 97.2 % 96.0-97.0 HCO3 ARTERIAL (BEAKER) (test prby=126) 26 mmol/L 21-29 BASE EXCESS ARTERIAL (BEAKER) (test xwsa=293) 0.8 mmol/L -2.0-3.0 PATIENT TEMPERATURE (BEAKER) (test aykq=1983) 37.1 C FIO2 (BEAKER) (test bund=4378) 48.0 % POCT-GLUCOSE [id number] 05:27:00 Test Item Value Reference Range Comments POC-GLUCOSE METER (BEAKER) 171 mg/dL 70-110 TESTED AT [address] (test qoyt=2382) [facility] [address] RAD, CHEST, 1 VIEW, NON [id number] 04:51:00Reason for exam:->s/p cardiac surgeryFINAL REPORT CLINICAL INDICATION: Postop Comparison: 05/31/2017 The cardiomediastinal contours are stable. There is mild central pulmonary vascular congestion. Bilateral parenchymal opacities are unchanged. There is no pneumothorax. Support lines are stable. Signed: Moshe Dumont MDReport Verified Date/Time: 06/01/2017 04:51:39 Reading Location: [address] Reading Room POCT-GLUCOSE [id number] 04:16:00 Test Item Value Reference Range Comments POC-GLUCOSE METER (BEAKER) 164 mg/dL 70-110 TESTED AT [address] (test nggt=8246) [place] [id number] POCT-GLUCOSE [id number] 04:16:00 Test Item Value Reference Range Comments POC-GLUCOSE METER (BEAKER) 118 mg/dL 70-110 TESTED AT [address] (test fhmm=3113) [place] [id number] POCT-GLUCOSE [id number] 04:16:00 Test Item Value Reference Range Comments POC-GLUCOSE METER (BEAKER) 97 mg/dL 70-110 TESTED AT [address] (test ouuw=0209) [place] [id number] POCT-GLUCOSE [id number] 04:16:00 Test Item Value Reference Range Comments POC-GLUCOSE METER (BEAKER) 112 mg/dL 70-110 TESTED AT [address] (test ayqm=1432) [place] [address] BASIC METABOLIC [id number] 03:27:00 Test Item Value Reference Range Comments SODIUM (BEAKER) (test 154 meq/L 136-145 dlls=881) POTASSIUM (BEAKER) (test 3.4 meq/L 3.5-5.1 mvwm=899) CHLORIDE (BEAKER) (test 123 meq/L 98-107 ycgf=916) CO2 (BEAKER) (test 22 meq/L 22-29 viyq=372) BLOOD UREA NITROGEN 8 mg/dL 7-21 (BEAKER) (test qppj=667) CREATININE (BEAKER) (test 0.72 mg/dL 0.57-1.25 mruu=975) GLUCOSE RANDOM (BEAKER) 98 mg/dL 70-105 (test dwbu=412) CALCIUM (BEAKER) (test 8.7 mg/dL 8.4-10.2 krrh=611) EGFR (BEAKER) (test 84 mL/min/1.73 sq m ESTIMATED GFR IS NOT sfqx=7190) ACCURATE CREATININE CLEARANCE IN PREDICTING GLOMERULAR FILTRATION RATE. ESTIMATED GFR IS NOT APPLICABLE FOR DIALYSIS PATIENTS. [id number] 03:21:00 Test Item Value Reference Range Comments PHOSPHORUS (BEAKER) (test tmzm=730) 2.7 mg/dL 2.3-4.7 [id number] 03:21:00 Test Item Value Reference Range Comments MAGNESIUM (BEAKER) (test pohz=895) 2.2 mg/dL 1.6-2.6 LACTIC ACID, ARTERIAL, WHOLE [id number] 03:16:00 Test Item Value Reference Range Comments LACTATE BLOOD ARTERIAL (2) (BEAKER) (test 1.5 mmol/L 0.5-2.2 fcgb=0153) Effective 10/21/2015: Units/Reference Range ChangeNew: 0.5-2.2 mmol/L Previous: 5 -20 mg/dLCBC W/PLT COUNT & AUTO [id number] 03:14:00 Test Item Value Reference Range Comments WHITE BLOOD CELL COUNT (BEAKER) (test ebvg=336) 12.5 K/ L 3.5-10.5 RED BLOOD CELL COUNT (BEAKER) (test qakz=708) 2.75 M/ L 3.93-5.22 HEMOGLOBIN (BEAKER) (test frrj=717) 8.4 GM/DL 11.2-15.7 HEMATOCRIT (BEAKER) (test geep=205) 26.4 % 34.1-44.9 MEAN CORPUSCULAR VOLUME (BEAKER) (test xeir=337) 96.0 fL 79.4-94.8 MEAN CORPUSCULAR HEMOGLOBIN (BEAKER) (test 30.5 pg 25.6-32.2 xgcy=045) MEAN CORPUSCULAR HEMOGLOBIN CONC (BEAKER) (test 31.8 GM/DL 32.2-35.5 lvmy=182) RED CELL DISTRIBUTION WIDTH (BEAKER) (test 12.9 % 11.7-14.4 ervv=399) PLATELET COUNT (BEAKER) (test nykd=973) 231 K/CU MM 150-450 MEAN PLATELET VOLUME (BEAKER) (test lrvm=532) 10.0 fL 9.4-12.3 NUCLEATED RED BLOOD CELLS (BEAKER) (test 0 /100 WBC 0-0 eyih=012) NEUTROPHILS RELATIVE PERCENT (BEAKER) (test 79 % ytrc=104) LYMPHOCYTES RELATIVE PERCENT (BEAKER) (test 9 % tcmg=164) MONOCYTES RELATIVE PERCENT (BEAKER) (test 12 % ufzl=507) EOSINOPHILS RELATIVE PERCENT (BEAKER) (test 0 % vbge=710) BASOPHILS RELATIVE PERCENT (BEAKER) (test 0 % upzu=456) NEUTROPHILS ABSOLUTE COUNT (BEAKER) (test 9.92 K/ L 1.56-6.13 izlv=495) LYMPHOCYTES ABSOLUTE COUNT (BEAKER) (test 1.06 K/ L 1.18-3.74 xxvg=829) MONOCYTES ABSOLUTE COUNT (BEAKER) (test 1.45 K/ L 0.24-0.36 aeyb=937) EOSINOPHILS ABSOLUTE COUNT (BEAKER) (test 0.00 K/ L 0.04-0.36 digd=317) BASOPHILS ABSOLUTE COUNT (BEAKER) (test 0.03 K/ L 0.01-0.08 oqmy=222) IMMATURE GRANULOCYTES-RELATIVE PERCENT (BEAKER) 1 % 0-1 (test toeq=3365) CALCIUM, [id number] 03:01:00 Test Item Value Reference Range Comments CALCIUM IONIZED (BEAKER) (test fgpq=119) 1.19 mmol/L 1.12-1.27 PH, BLOOD (BEAKER) (test opwm=9658) 7.36 OXYGEN SATURATION, [id number] 02:59:00 Test Item Value Reference Range Comments O2 SATURATION (MEASURED) (BEAKER) (test laza=1129) 76.9 % POCT-GLUCOSE [id number] 00:22:00 Test Item Value Reference Range Comments POC-GLUCOSE METER (BEAKER) 141 mg/dL 70-110 TESTED AT [facility] [address] [facility] (test zmyt=9761) [facility] [address] POCT-GLUCOSE [id number] 00:21:00 Test Item Value Reference Range Comments POC-GLUCOSE METER (BEAKER) 165 mg/dL 70-110 TESTED AT [address] (test dcfy=0822) [facility] [address] HEMOGLOBIN AND [id number] 22:35:00 Test Item Value Reference Range Comments HEMOGLOBIN (BEAKER) (test dmxs=518) 7.8 GM/DL 11.2-15.7 HEMATOCRIT (BEAKER) (test xqcs=067) 24.1 % 34.1-44.9 POCT-GLUCOSE [id number] 22:19:00 Test Item Value Reference Range Comments POC-GLUCOSE METER (BEAKER) 179 mg/dL 70-110 TESTED AT [address] (test ejvd=5737) [place] [id number] POCT-GLUCOSE [id number] 22:19:00 Test Item Value Reference Range Comments POC-GLUCOSE METER (BEAKER) 211 mg/dL 70-110 TESTED AT [address] (test qbir=9815) [place] [id number] LACTIC ACID, ARTERIAL, WHOLE [id number] 22:11:00 Test Item Value Reference Range Comments LACTATE BLOOD ARTERIAL (2) (BEAKER) (test 4.6 mmol/L 0.5-2.2 rbpp=4806) Effective 10/21/2015: Units/Reference Range ChangeNew: 0.5-2.2 mmol/L Previous: 5 -20 mg/dLBLOOD GAS, [id number] 21:50:00 Test Item Value Reference Range Comments PH ARTERIAL (BEAKER) (test viyt=251) 7.40 7.35-7.45 PCO2 ARTERIAL (BEAKER) (test atpn=524) 35 mmHg 35-45 PO2 ARTERIAL (BEAKER) (test ftbg=602) 75 mmHg 80-90 O2 SATURATION ARTERIAL (BEAKER) (test grgf=215) 95.0 % 96.0-97.0 HCO3 ARTERIAL (BEAKER) (test lqlk=587) 21 mmol/L 21-29 BASE EXCESS ARTERIAL (BEAKER) (test hqxm=448) -3.1 mmol/L -2.0-3.0 PATIENT TEMPERATURE (BEAKER) (test dwmt=9706) 37.4 C FIO2 (BEAKER) (test hlmk=5074) 40.0 % POCT-GLUCOSE [id number] 20:59:00 Test Item Value Reference Range Comments POC-GLUCOSE METER (BEAKER) 186 mg/dL 70-110 TESTED AT [address] (test oebi=8708) [place] [address] POCT-GLUCOSE [id number] 19:52:00 Test Item Value Reference Range Comments POC-GLUCOSE METER (BEAKER) 232 mg/dL 70-110 TESTED AT [address] (test mfyh=8213) [place] [address] TROPONIN [id number] 18:40:00 Test Item Value Reference Range Comments TROPONIN I (BEAKER) (test qibr=701) 8.77 ng/mL 0.00-0.03 Troponin I (TnI) levels must be interpreted in the context of the presenting symptoms and the clinical findings. Elevated TnI levels indicate myocardial damage, but are not specific for ischemic heart disease. Elevated TnI levels are seen in patients with other cardiac conditions (including myocarditis and congestive heart failure), and slight TnI elevations occur in patients with other conditions, including sepsis, renal failure, acidosis, acute neurological disease, and persistent tachyarrhythmia.POCT-GLUCOSE [id number] 18:29:00 Test Item Value Reference Range Comments POC-GLUCOSE METER (BEAKER) 306 mg/dL 70-110 TESTED AT [address] (test jnuj=8878) [place] [address] POCT-GLUCOSE [id number] 18:07:00 Test Item Value Reference Range Comments POC-GLUCOSE METER (BEAKER) 274 mg/dL 70-110 TESTED AT [address] (test egon=5681) [place] [address] CBC W/PLT COUNT & AUTO [id number] 17:24:00 Test Item Value Reference Range Comments WHITE BLOOD CELL COUNT (BEAKER) (test rsgh=240) 15.7 K/ L 3.5-10.5 RED BLOOD CELL COUNT (BEAKER) (test ikif=985) 2.92 M/ L 3.93-5.22 HEMOGLOBIN (BEAKER) (test kluv=944) 8.9 GM/DL 11.2-15.7 HEMATOCRIT (BEAKER) (test dzxj=329) 28.2 % 34.1-44.9 MEAN CORPUSCULAR VOLUME (BEAKER) (test vico=228) 96.6 fL 79.4-94.8 MEAN CORPUSCULAR HEMOGLOBIN (BEAKER) (test 30.5 pg 25.6-32.2 enzo=822) MEAN CORPUSCULAR HEMOGLOBIN CONC (BEAKER) (test 31.6 GM/DL 32.2-35.5 blkb=730) RED CELL DISTRIBUTION WIDTH (BEAKER) (test 12.3 % 11.7-14.4 pplu=633) PLATELET COUNT (BEAKER) (test cfid=586) 281 K/CU MM 150-450 MEAN PLATELET VOLUME (BEAKER) (test remk=364) 10.3 fL 9.4-12.3 NUCLEATED RED BLOOD CELLS (BEAKER) (test 0 /100 WBC 0-0 rzsm=794) NEUTROPHILS RELATIVE PERCENT (BEAKER) (test 81 % rxdq=568) LYMPHOCYTES RELATIVE PERCENT (BEAKER) (test 9 % vebd=419) MONOCYTES RELATIVE PERCENT (BEAKER) (test 9 % qaio=252) EOSINOPHILS RELATIVE PERCENT (BEAKER) (test 0 % yyht=376) BASOPHILS RELATIVE PERCENT (BEAKER) (test 0 % wwwt=980) NEUTROPHILS ABSOLUTE COUNT (BEAKER) (test 12.70 K/ L 1.56-6.13 bwhj=420) LYMPHOCYTES ABSOLUTE COUNT (BEAKER) (test 1.38 K/ L 1.18-3.74 qooy=857) MONOCYTES ABSOLUTE COUNT (BEAKER) (test 1.34 K/ L 0.24-0.36 fhid=386) EOSINOPHILS ABSOLUTE COUNT (BEAKER) (test 0.07 K/ L 0.04-0.36 gzzm=155) BASOPHILS ABSOLUTE COUNT (BEAKER) (test 0.03 K/ L 0.01-0.08 nwqw=381) IMMATURE GRANULOCYTES-RELATIVE PERCENT (BEAKER) 1 % 0-1 (test jpzy=1819) RAD, CHEST, 1 VIEW, NON [id number] 17:02:00Reason for exam:->immediate post cardiothoracic/IntubationShould this be performed at the bedside?-> YesFINAL REPORT AP chest HISTORY: Surgery. Intubation. COMPARISON: 05/29/2017 IMPRESSION:Endotracheal tube in satisfactory position. Right IJ central venous catheter present with tip at mid SVC. Mediastinal and pleural drains noted. Stable cardiac silhouette. Mild perihilar atelectasis. No pneumothorax. Signed: Jose Shine MDReport Verified Date/Time: 05/31/2017 17:02:20 Reading Location: [facility] Reading Room [id number] 16:46:00 Test Item Value Reference Range Comments POTASSIUM (BEAKER) (test ebsa=845) 3.8 meq/L 3.5-5.1 [id number] 16:46:00 Test Item Value Reference Range Comments MAGNESIUM (BEAKER) (test gvcc=412) 2.6 mg/dL 1.6-2.6 [id number] 16:46:00 Test Item Value Reference Range Comments PHOSPHORUS (BEAKER) (test umvk=520) 4.2 mg/dL 2.3-4.7 [id number] 16:46:00 Test Item Value Reference Range Comments GLUCOSE RANDOM (BEAKER) (test jzuf=390) 311 mg/dL 70-105 BASIC METABOLIC [id number] 16:46:00 Test Item Value Reference Range Comments SODIUM (BEAKER) (test 147 meq/L 136-145 ennl=302) POTASSIUM (BEAKER) (test 3.8 meq/L 3.5-5.1 lrrv=883) CHLORIDE (BEAKER) (test 114 meq/L 98-107 etun=467) CO2 (BEAKER) (test 21 meq/L 22-29 rkjd=535) BLOOD UREA NITROGEN 8 mg/dL 7-21 (BEAKER) (test lmqr=175) CREATININE (BEAKER) (test 0.82 mg/dL 0.57-1.25 dyqx=614) GLUCOSE RANDOM (BEAKER) 311 mg/dL 70-105 (test yrlq=090) CALCIUM (BEAKER) (test 9.4 mg/dL 8.4-10.2 swmn=260) EGFR (BEAKER) (test 72 mL/min/1.73 sq m ESTIMATED GFR IS NOT ylto=3791) ACCURATE CREATININE CLEARANCE IN PREDICTING GLOMERULAR FILTRATION RATE. ESTIMATED GFR IS NOT APPLICABLE FOR DIALYSIS PATIENTS. LACTIC ACID, ARTERIAL, WHOLE [id number] 16:39:00 Test Item Value Reference Range Comments LACTATE BLOOD ARTERIAL (2) 3.0 mmol/L 0.5-2.2 Specimen slightly hemolyzed (BEAKER) (test jezf=4887) Effective 10/21/2015: Units/Reference Range ChangeNew: 0.5-2.2 mmol/L Previous: 5 -20 mg/dLOXYGEN SATURATION, [id number] 16:14:00 Test Item Value Reference Range Comments O2 SATURATION (MEASURED) (BEAKER) (test nuep=2962) 67.8 % SODIUM NA-STAT [id number] 16:13:00 Test Item Value Reference Range Comments SODIUM (BEAKER) (test rdeq=883) 145 meq/L 135-148 POTASSIUM-STAT [id number] 16:13:00 Test Item Value Reference Range Comments POTASSIUM (BEAKER) (test nmxe=287) 3.7 meq/L 3.6-5.5 CALCIUM, [id number] 16:13:00 Test Item Value Reference Range Comments CALCIUM IONIZED (BEAKER) (test kwar=652) 1.28 mmol/L 1.12-1.27 PH, BLOOD (BEAKER) (test vxry=8727) 7.33 BLOOD GAS, [id number] 16:13:00 Test Item Value Reference Range Comments PH ARTERIAL (BEAKER) (test pqfj=983) 7.33 7.35-7.45 PCO2 ARTERIAL (BEAKER) (test vsuz=817) 48 mmHg 35-45 PO2 ARTERIAL (BEAKER) (test jrhc=852) 67 mmHg 80-90 O2 SATURATION ARTERIAL (BEAKER) (test prmp=018) 92.6 % 96.0-97.0 HCO3 ARTERIAL (BEAKER) (test hafb=779) 25 mmol/L 21-29 BASE EXCESS ARTERIAL (BEAKER) (test cqqh=276) -1.5 mmol/L -2.0-3.0 PATIENT TEMPERATURE (BEAKER) (test rtjb=1909) 36.3 C FIO2 (BEAKER) (test ggvh=0149) 60.0 % GLUCOSE-STAT [id number] 16:13:00 Test Item Value Reference Range Comments GLUCOSE RANDOM (BEAKER) (test koja=027) 289 mg/dL 70-110 HGB/HCT (H&H) - STAT [id number] 16:13:00 Test Item Value Reference Range Comments HEMOGLOBIN (BEAKER) (test jclt=932) 10.0 g/dL 12.0-15.0 HEMATOCRIT (BEAKER) (test zjwv=529) 29.0 % 36.0-45.0 THROMBOELASTOGRAPH (TEG)[id number] 15:16:00 Test Item Value Reference Range Comments TEG ACTIVATED CLOTTING TIME (BEAKER) (test 5.2 minutes 4.0-7.0 xjzv=7378) TEG FIBRINOGEN ACTIVITY (BEAKER) (test 71.5 degrees 61.0-73.0 tacd=5336) TEG PLT. AGGREGATION (BEAKER) (test ieqj=7434) 64.1 MM 55.0-65.0 TGH ACTIVATED CLOTTING TIME (BEAKER) (test 5.0 minutes 4.0-7.0 oxai=4068) TGH FIBRINOGEN ACTIVITY (BEAKER) (test 72.8 degrees 61.0-73.0 gztg=8076) TGH PLT. AGGREGATION (BEAKER) (test oubz=5689) 65.6 MM 55.0-65.0 [id number] 15:06:00 Test Item Value Reference Range Comments ACTIVATED CLOTTING TIME (BEAKER) 92 sec TESTED AT [place] [address] [facility] (test vshb=045) [place] [address] [id number] 15:06:00 Test Item Value Reference Range Comments ACTIVATED CLOTTING TIME 466 sec TESTED AT [place] [id number] [facility] (BEAKER) (test gkoh=229) [place] [address] [id number] 15:05:00 Test Item Value Reference Range Comments ACTIVATED CLOTTING TIME 395 sec TESTED AT [place] [id number] BERTNER (BEAKER) (test kwga=512) [place] [address] [id number] 15:05:00 Test Item Value Reference Range Comments ACTIVATED CLOTTING TIME 422 sec TESTED AT [place] [id number] BERTNER (BEAKER) (test zjfc=723) [place] [address] [id number] 15:05:00 Test Item Value Reference Range Comments ACTIVATED CLOTTING TIME 538 sec TESTED AT [place] [id number] BERTNER (BEAKER) (test vhhb=216) [place] [address] [id number] 15:05:00 Test Item Value Reference Range Comments ACTIVATED CLOTTING TIME 120 sec TESTED AT [facility] [address] (BEAKER) (test lbid=531) [place] [address] PLATELET COUNT-STAT [id number] 14:51:00 Test Item Value Reference Range Comments PLATELET COUNT (BEAKER) (test fikc=636) 184 K/CU MM 150-430 [id number] 14:47:00 Test Item Value Reference Range Comments FIBRINOGEN LEVEL (BEAKER) (test uynq=804) 314 mg/dl 225-434 [id number] 14:47:00 Test Item Value Reference Range Comments PARTIAL THROMBOPLASTIN TIME (BEAKER) (test 28.2 seconds 22.5-36.0 ieln=825) PROTHROMBIN [id number] 14:46:00 Test Item Value Reference Range Comments PROTIME (BEAKER) (test sapf=083) 17.4 seconds 11.7-14.7 INR (BEAKER) (test yrtl=302) 1.4 <=5.9 RECOMMENDED COUMADIN/WARFARIN INR THERAPY RANGESSTANDARD DOSE: 2.0 - 3.0 Includes: PROPHYLAXIS forvenous thrombosis, systemic embolization; TREATMENT for venous thrombosis and/or pulmonary embolus.HIGH RISK: Target INR is 2.5-3.5 for patients with mechanical heart valves.CALCIUM, [id number] 14:31:00 Test Item Value Reference Range Comments CALCIUM IONIZED (BEAKER) (test cjoy=663) 1.04 mmol/L 1.12-1.27 PH, BLOOD (BEAKER) (test ptnm=3116) 7.34 BLOOD GAS, [id number] 14:30:00 Test Item Value Reference Range Comments PH ARTERIAL (BEAKER) (test dybs=481) 7.33 7.35-7.45 PCO2 ARTERIAL (BEAKER) (test ukgv=772) 45 mmHg 35-45 PO2 ARTERIAL (BEAKER) (test sbhs=258) 267 mmHg 80-90 O2 SATURATION ARTERIAL (BEAKER) (test nzhs=865) 99.6 % 96.0-97.0 HCO3 ARTERIAL (BEAKER) (test xrfx=776) 24 mmol/L 21-29 BASE EXCESS ARTERIAL (BEAKER) (test lcye=374) -2.3 mmol/L -2.0-3.0 PATIENT TEMPERATURE (BEAKER) (test htbm=3429) 36.6 C FIO2 (BEAKER) (test rxjb=5077) 100.0 % GLUCOSE-STAT [id number] 14:30:00 Test Item Value Reference Range Comments GLUCOSE RANDOM (BEAKER) (test mapk=382) 299 mg/dL 70-110 HGB/HCT (H&H) - STAT [id number] 14:30:00 Test Item Value Reference Range Comments HEMOGLOBIN (BEAKER) (test wmgn=387) 9.4 g/dL 12.0-15.0 HEMATOCRIT (BEAKER) (test kfoq=252) 28.0 % 36.0-45.0 SODIUM NA-STAT [id number] 14:28:00 Test Item Value Reference Range Comments SODIUM (BEAKER) (test ftwe=951) 142 meq/L 135-148 POTASSIUM-STAT [id number] 14:28:00 Test Item Value Reference Range Comments POTASSIUM (BEAKER) (test ojru=286) 4.5 meq/L 3.6-5.5 SODIUM NA-STAT [id number] 13:41:00 Test Item Value Reference Range Comments SODIUM (BEAKER) (test ylqb=607) 138 meq/L 135-148 POTASSIUM-STAT [id number] 13:41:00 Test Item Value Reference Range Comments POTASSIUM (BEAKER) (test hybj=514) 5.4 meq/L 3.6-5.5 BLOOD GAS, [id number] 13:41:00 Test Item Value Reference Range Comments PH ARTERIAL (BEAKER) (test jams=754) 7.38 7.35-7.45 PCO2 ARTERIAL (BEAKER) (test offm=672) 38 mmHg 35-45 PO2 ARTERIAL (BEAKER) (test hofk=140) 354 mmHg 80-90 O2 SATURATION ARTERIAL (BEAKER) (test xytl=259) 99.8 % 96.0-97.0 HCO3 ARTERIAL (BEAKER) (test cfvk=143) 22 mmol/L 21-29 BASE EXCESS ARTERIAL (BEAKER) (test uigs=305) -2.8 mmol/L -2.0-3.0 PATIENT TEMPERATURE (BEAKER) (test gaoj=6137) 36.5 C FIO2 (BEAKER) (test dqbm=8426) 80.0 % GLUCOSE-STAT [id number] 13:41:00 Test Item Value Reference Range Comments GLUCOSE RANDOM (BEAKER) (test cwov=456) 296 mg/dL 70-110 HGB/HCT (H&H) - STAT [id number] 13:41:00 Test Item Value Reference Range Comments HEMOGLOBIN (BEAKER) (test zrlf=324) 8.9 g/dL 12.0-15.0 HEMATOCRIT (BEAKER) (test zfoq=409) 26.0 % 36.0-45.0 SODIUM NA-STAT [id number] 13:25:00 Test Item Value Reference Range Comments SODIUM (BEAKER) (test clhb=563) 139 meq/L 135-148 POTASSIUM-STAT [id number] 13:25:00 Test Item Value Reference Range Comments POTASSIUM (BEAKER) (test kdic=676) 5.3 meq/L 3.6-5.5 BLOOD GAS, [id number] 13:25:00 Test Item Value Reference Range Comments PH ARTERIAL (BEAKER) (test gmmc=498) 7.35 7.35-7.45 PCO2 ARTERIAL (BEAKER) (test naqu=848) 48 mmHg 35-45 PO2 ARTERIAL (BEAKER) (test xtov=838) 269 mmHg 80-90 O2 SATURATION ARTERIAL (BEAKER) (test xipf=515) 99.6 % 96.0-97.0 HCO3 ARTERIAL (BEAKER) (test suxo=799) 26 mmol/L 21-29 BASE EXCESS ARTERIAL (BEAKER) (test fakp=847) 0.2 mmol/L -2.0-3.0 PATIENT TEMPERATURE (BEAKER) (test lquy=0617) 36.5 C FIO2 (BEAKER) (test lyty=4669) 70.0 % GLUCOSE-STAT [id number] 13:25:00 Test Item Value Reference Range Comments GLUCOSE RANDOM (BEAKER) (test otip=535) 291 mg/dL 70-110 HGB/HCT (H&H) - STAT [id number] 13:25:00 Test Item Value Reference Range Comments HEMOGLOBIN (BEAKER) (test dreq=223) 9.1 g/dL 12.0-15.0 HEMATOCRIT (BEAKER) (test wmcu=342) 27.0 % 36.0-45.0 BLOOD GAS, [id number] 12:56:00 Test Item Value Reference Range Comments PH ARTERIAL (BEAKER) (test pfcg=842) 7.32 7.35-7.45 PCO2 ARTERIAL (BEAKER) (test habz=422) 40 mmHg 35-45 PO2 ARTERIAL (BEAKER) (test nzcn=840) 470 mmHg 80-90 O2 SATURATION ARTERIAL (BEAKER) (test utfm=235) 99.8 % 96.0-97.0 HCO3 ARTERIAL (BEAKER) (test ijpx=853) 22 mmol/L 21-29 BASE EXCESS ARTERIAL (BEAKER) (test awqc=235) -5.4 mmol/L -2.0-3.0 PATIENT TEMPERATURE (BEAKER) (test fhol=7748) 31.8 C FIO2 (BEAKER) (test rmbr=8363) 80.0 % GLUCOSE-STAT [id number] 12:56:00 Test Item Value Reference Range Comments GLUCOSE RANDOM (BEAKER) (test ryhp=617) 292 mg/dL 70-110 HGB/HCT (H&H) - STAT [id number] 12:56:00 Test Item Value Reference Range Comments HEMOGLOBIN (BEAKER) (test iwlr=267) 9.0 g/dL 12.0-15.0 HEMATOCRIT (BEAKER) (test xnvr=075) 26.0 % 36.0-45.0 SODIUM NA-STAT [id number] 12:55:00 Test Item Value Reference Range Comments SODIUM (BEAKER) (test bnct=011) 137 meq/L 135-148 POTASSIUM-STAT [id number] 12:55:00 Test Item Value Reference Range Comments POTASSIUM (BEAKER) (test srzt=918) 4.6 meq/L 3.6-5.5 CALCIUM, [id number] 12:12:00 Test Item Value Reference Range Comments CALCIUM IONIZED (BEAKER) (test udeu=304) 1.09 mmol/L 1.12-1.27 PH, BLOOD (BEAKER) (test qzso=5347) 7.40 SODIUM NA-STAT [id number] 12:11:00 Test Item Value Reference Range Comments SODIUM (BEAKER) (test zzah=804) 142 meq/L 135-148 POTASSIUM-STAT [id number] 12:11:00 Test Item Value Reference Range Comments POTASSIUM (BEAKER) (test olul=095) 3.9 meq/L 3.6-5.5 HGB/HCT (H&H) - STAT [id number] 12:11:00 Test Item Value Reference Range Comments HEMOGLOBIN (BEAKER) (test mwge=063) 13.6 g/dL 12.0-15.0 HEMATOCRIT (BEAKER) (test mgmb=986) 40.0 % 36.0-45.0 BLOOD GAS, [id number] 12:11:00 Test Item Value Reference Range Comments PH ARTERIAL (BEAKER) (test dtus=917) 7.39 7.35-7.45 PCO2 ARTERIAL (BEAKER) (test qhbs=250) 37 mmHg 35-45 PO2 ARTERIAL (BEAKER) (test endg=668) 315 mmHg 80-90 O2 SATURATION ARTERIAL (BEAKER) (test gdei=449) 99.7 % 96.0-97.0 HCO3 ARTERIAL (BEAKER) (test wpou=166) 22 mmol/L 21-29 BASE EXCESS ARTERIAL (BEAKER) (test bzyq=238) -2.6 mmol/L -2.0-3.0 PATIENT TEMPERATURE (BEAKER) (test knko=8509) 37.4 C FIO2 (BEAKER) (test rygf=6690) 100.0 % GLUCOSE-STAT [id number] 12:11:00 Test Item Value Reference Range Comments GLUCOSE RANDOM (BEAKER) (test pjvz=166) 250 mg/dL 70-110 PLATELET AGGREGATION: FUNCTION [id number] 10:22:00 Test Item Value Reference Range Comments WEAK ADP RESULT(BEAKER) (test 49 % 60-91 lvlh=3836) PLATELET FUNCTION SCREEN 40-49% indicates moderate INTERP (BEAKER) (test platelet dysfunction ezjx=9547) [id number] Robe Jose MD (electronic (BEAKER) (test xpuf=8690) signature) PLATELET COUNT AGG (BEAKER) 255 K/CU MM 150-450 (test badn=9584) POCT-GLUCOSE [id number] 07:55:00 Test Item Value Reference Range Comments POC-GLUCOSE METER (BEAKER) 264 mg/dL 70-110 TESTED AT [facility] [address] [facility] (test myki=8341) [facility] [address] [id number] 05:03:00 Test Item Value Reference Range Comments MAGNESIUM (BEAKER) (test kmyb=184) 1.9 mg/dL 1.6-2.6 BASIC METABOLIC [id number] 05:03:00 Test Item Value Reference Range Comments SODIUM (BEAKER) (test 141 meq/L 136-145 ujel=547) POTASSIUM (BEAKER) (test 4.0 meq/L 3.5-5.1 oguf=698) CHLORIDE (BEAKER) (test 112 meq/L 98-107 tpse=173) CO2 (BEAKER) (test 19 meq/L 22-29 rznq=637) BLOOD UREA NITROGEN 8 mg/dL 7-21 (BEAKER) (test tmhr=735) CREATININE (BEAKER) (test 0.80 mg/dL 0.57-1.25 zwbl=440) GLUCOSE RANDOM (BEAKER) 310 mg/dL 70-105 (test zydv=636) CALCIUM (BEAKER) (test 9.1 mg/dL 8.4-10.2 maoj=560) EGFR (BEAKER) (test 74 mL/min/1.73 sq m ESTIMATED GFR IS NOT dqqq=6521) ACCURATE CREATININE CLEARANCE IN PREDICTING GLOMERULAR FILTRATION RATE. ESTIMATED GFR IS NOT APPLICABLE FOR DIALYSIS PATIENTS. CBC (HEMOGRAM ONLY)2017-05-31 04:28:00 Test Item Value Reference Range Comments WHITE BLOOD CELL COUNT (BEAKER) (test rvah=381) 11.9 K/ L 3.5-10.5 RED BLOOD CELL COUNT (BEAKER) (test wcji=381) 4.65 M/ L 3.93-5.22 HEMOGLOBIN (BEAKER) (test yxlc=342) 14.0 GM/DL 11.2-15.7 HEMATOCRIT (BEAKER) (test wurh=677) 43.2 % 34.1-44.9 MEAN CORPUSCULAR VOLUME (BEAKER) (test mizs=585) 92.9 fL 79.4-94.8 MEAN CORPUSCULAR HEMOGLOBIN (BEAKER) (test 30.1 pg 25.6-32.2 ieiw=002) MEAN CORPUSCULAR HEMOGLOBIN CONC (BEAKER) (test 32.4 GM/DL 32.2-35.5 kuul=866) RED CELL DISTRIBUTION WIDTH (BEAKER) (test 12.1 % 11.7-14.4 htjl=802) PLATELET COUNT (BEAKER) (test ocni=030) 245 K/CU MM 150-450 MEAN PLATELET VOLUME (BEAKER) (test yaid=521) 9.7 fL 9.4-12.3 NUCLEATED RED BLOOD CELLS (BEAKER) (test 0 /100 WBC 0-0 kror=998) POCT-GLUCOSE [id number] 23:45:00 Test Item Value Reference Range Comments POC-GLUCOSE METER (BEAKER) 248 mg/dL 70-110 TESTED AT [address] (test fxkt=7226) [place] [address] POCT-GLUCOSE [id number] 18:04:00 Test Item Value Reference Range Comments POC-GLUCOSE METER (BEAKER) 286 mg/dL 70-110 TESTED AT [address] (test xcrt=2081) [place] [address] HEMOGLOBIN [id number] 13:48:00 Test Item Value Reference Range Comments HEMOGLOBIN A1C (BEAKER) (test xhkw=628) 9.7 % 4.3-6.1 TROPONIN [id number] 08:35:00 Test Item Value Reference Range Comments TROPONIN I (BEAKER) (test nmwv=460) 3.73 ng/mL 0.00-0.03 Troponin I (TnI) levels must be interpreted in the context of the presenting symptoms and the clinical findings. Elevated TnI levels indicate myocardial damage, but are not specific for ischemic heart disease. Elevated TnI levels are seen in patients with other cardiac conditions (including myocarditis and congestive heart failure), and slight TnI elevations occur in patients with other conditions, including sepsis, renal failure, acidosis, acute neurological disease, and persistent tachyarrhythmia.TSH/FREE T4 IF [id number] 08:30 :00 Test Item Value Reference Range Comments THYROID STIMULATING HORMONE (BEAKER) (test 3.87 uIU/mL 0.35-4.94 kvcc=535) POCT-GLUCOSE [id number] 08:23:00 Test Item Value Reference Range Comments POC-GLUCOSE METER (BEAKER) 248 mg/dL 70-110 TESTED AT [address] (test mliq=7061) [place] [id number] CREATINE KINASE (CK), TOTAL AND [id number] 08:13:00 Test Item Value Reference Range Comments CREATINE KINASE TOTAL (BEAKER) (test kqyp=528) 246 U/L 29-200 CREATINE KINASE-MB (BEAKER) (test kuwa=905) 22.8 ng/mL 0.0-6.6 CREATINE KINASE-MB INDEX (BEAKER) (test ehrv=651) 9.3 % CK-MB Reference Range:<6.7 Normal6.7-10.0 Borderline>10.0 AbnormalLIPID [id number] 08:06:00 Test Item Value Reference Range Comments TRIGLYCERIDES (BEAKER) (test shef=853) 253 mg/dL CHOLESTEROL (BEAKER) (test lwsw=266) 158 mg/dL HDL CHOLESTEROL (BEAKER) (test rqoa=556) 43 mg/dL LDL CHOLESTEROL CALCULATED (BEAKER) (test 64 mg/dL ltco=096) Triglyceride Reference Range: Low Risk <150 Borderline 150- 199 High Risk 200-499 Very High Risk >=500Cholesterol Reference Range: Low Risk <200 Borderline 200-239 High Risk > 240HDL Cholesterol Reference Range: Low Risk >=60 High Risk <40LDL Cholesterol Reference Range: Optimal <100 Near Optimal 100-129 Borderline 130-159 High 160-189 Very High >=190BASIC METABOLIC [id number] 08:06:00 Test Item Value Reference Range Comments SODIUM (BEAKER) (test 139 meq/L 136-145 wwmr=347) POTASSIUM (BEAKER) (test 4.0 meq/L 3.5-5.1 rilg=239) CHLORIDE (BEAKER) (test 109 meq/L 98-107 revl=375) CO2 (BEAKER) (test 22 meq/L 22-29 bvgh=863) BLOOD UREA NITROGEN 12 mg/dL 7-21 (BEAKER) (test qmjb=521) CREATININE (BEAKER) (test 0.91 mg/dL 0.57-1.25 kftw=775) GLUCOSE RANDOM (BEAKER) 261 mg/dL 70-105 (test lcdn=703) CALCIUM (BEAKER) (test 8.6 mg/dL 8.4-10.2 uzhv=674) EGFR (BEAKER) (test 64 mL/min/1.73 sq m ESTIMATED GFR IS NOT cttk=3191) ACCURATE CREATININE CLEARANCE IN PREDICTING GLOMERULAR FILTRATION RATE. ESTIMATED GFR IS NOT APPLICABLE FOR DIALYSIS PATIENTS. CBC (HEMOGRAM ONLY)2017-05-30 07:54:00 Test Item Value Reference Range Comments WHITE BLOOD CELL COUNT (BEAKER) (test ejdl=254) 9.7 K/ L 3.5-10.5 RED BLOOD CELL COUNT (BEAKER) (test coav=144) 4.23 M/ L 3.93-5.22 HEMOGLOBIN (BEAKER) (test wowt=357) 12.8 GM/DL 11.2-15.7 HEMATOCRIT (BEAKER) (test nyie=775) 40.0 % 34.1-44.9 MEAN CORPUSCULAR VOLUME (BEAKER) (test uwsl=492) 94.6 fL 79.4-94.8 MEAN CORPUSCULAR HEMOGLOBIN (BEAKER) (test 30.3 pg 25.6-32.2 aket=221) MEAN CORPUSCULAR HEMOGLOBIN CONC (BEAKER) (test 32.0 GM/DL 32.2-35.5 htna=719) RED CELL DISTRIBUTION WIDTH (BEAKER) (test 12.2 % 11.7-14.4 wjkk=575) PLATELET COUNT (BEAKER) (test uruf=996) 285 K/CU MM 150-450 MEAN PLATELET VOLUME (BEAKER) (test qvec=067) 10.1 fL 9.4-12.3 NUCLEATED RED BLOOD CELLS (BEAKER) (test 0 /100 WBC 0-0 xyke=547) [id number] 07:36:00 Test Item Value Reference Range Comments PARTIAL THROMBOPLASTIN TIME (BEAKER) (test 33.1 seconds 22.5-36.0 xoot=858) TROPONIN [id number] 00:04:00 Test Item Value Reference Range Comments TROPONIN I (BEAKER) (test yrdo=293) 6.02 ng/mL 0.00-0.03 Troponin I (TnI) levels must be interpreted in the context of the presenting symptoms and the clinical findings. Elevated TnI levels indicate myocardial damage, but are not specific for ischemic heart disease. Elevated TnI levels are seen in patients with other cardiac conditions (including myocarditis and congestive heart failure), and slight TnI elevations occur in patients with other conditions, including sepsis, renal failure, acidosis, acute neurological disease, and persistent tachyarrhythmia.CREATINE KINASE (CK), TOTAL AND [id number] 23:59:00 Test Item Value Reference Range Comments CREATINE KINASE TOTAL (BEAKER) (test qelq=963) 324 U/L 29-200 CREATINE KINASE-MB (BEAKER) (test fseu=183) 31.7 ng/mL 0.0-6.6 CREATINE KINASE-MB INDEX (BEAKER) (test rcrm=502) 9.8 % CK-MB Reference Range:<6.7 Normal6.7-10.0 Borderline>10.0 AbnormalCOMPREHENSIVE METABOLIC [id number] 23:36:00 Test Item Value Reference Range Comments TOTAL PROTEIN (BEAKER) 6.9 gm/dL 6.0-8.3 Specimen slightly (test edpx=219) hemolyzed ALBUMIN (BEAKER) (test 3.8 g/dL 3.5-5.0 Specimen slightly ewdd=9900) hemolyzed ALKALINE PHOSPHATASE 72 U/L 40-150 (BEAKER) (test bmuy=995) BILIRUBIN TOTAL (BEAKER) 0.4 mg/dL 0.2-1.2 Specimen slightly (test bfym=491) hemolyzed SODIUM (BEAKER) (test 137 meq/L 136-145 vlvy=254) POTASSIUM (BEAKER) (test 4.1 meq/L 3.5-5.1 Specimen slightly wljo=866) hemolyzed CHLORIDE (BEAKER) (test 107 meq/L 98-107 usaa=129) CO2 (BEAKER) (test 20 meq/L 22-29 rkvw=374) BLOOD UREA NITROGEN 10 mg/dL 7-21 (BEAKER) (test oqye=137) CREATININE (BEAKER) (test 0.93 mg/dL 0.57-1.25 Specimen slightly rrcl=760) hemolyzed GLUCOSE RANDOM (BEAKER) 147 mg/dL 70-105 (test qvkl=065) CALCIUM (BEAKER) (test 8.9 mg/dL 8.4-10.2 ffiv=170) AST (SGOT) (BEAKER) (test 48 U/L 5-34 Specimen slightly kaoq=124) hemolyzed ALT (SGPT) (BEAKER) (test 24 U/L 6-55 Specimen slightly tlbc=168) hemolyzed EGFR (BEAKER) (test 62 mL/min/1.73 sq m ESTIMATED GFR IS NOT kxqb=5235) ACCURATE CREATININE CLEARANCE IN PREDICTING GLOMERULAR FILTRATION RATE. ESTIMATED GFR IS NOT APPLICABLE FOR DIALYSIS PATIENTS. [id number] 23:32:00 Test Item Value Reference Range Comments PARTIAL THROMBOPLASTIN TIME (BEAKER) (test 27.0 seconds 22.5-36.0 cely=861) PROTHROMBIN TIME/[id number] 23:30:00 Test Item Value Reference Range Comments PROTIME (BEAKER) (test hjkk=048) 13.6 seconds 11.7-14.7 INR (BEAKER) (test dwvp=474) 1.1 <=5.9 RECOMMENDED COUMADIN/WARFARIN INR THERAPY RANGESSTANDARD DOSE: 2.0 - 3.0 Includes: PROPHYLAXIS forvenous thrombosis, systemic embolization; TREATMENT for venous thrombosis and/or pulmonary embolus.HIGH RISK: Target INR is 2.5-3.5 for patients with mechanical heart valves.PLATELET [id number] 23:13:00 Test Item Value Reference Range Comments PLATELET COUNT (BEAKER) (test pmyi=877) 283 K/CU MM 150-450 RAD, CHEST, 1 VIEW, NON [id number] 22:58:00Reason for exam:->chest painIs the patient ?->NoShould this be performed at the bedside?-> YesFINAL REPORT History: Chest pain. Comparison: None. Findings: A single view of the chest is submitted. The cardiomediastinal contours are unremarkable. There is no focal consolidation, pneumothorax, large pleural effusion or evidence of overt pulmonary edema. There is no acute bony abnormality. Impression: No acute abnormality. Signed: Moshe Dumont MDReport Verified Date/Time: 05/29/2017 22:58:06 Reading Location: [address] Reading Room
[2019-01-10] MEDS ORDERED: LIDOCAINE 1% MPF 30 ML VIAL ONE (07:01)
[2019-01-10] MEDS ORDERED: HEPA 1000U/500MLS 2,000 UNIT/1,000 ML BAG IV ONE (07:01)
[2019-01-10] MEDS ORDERED: NA CHLORIDE 0.9% 500 ML ONE (07:01)
[2019-01-10] MEDS ORDERED: NA CHLORIDE 0.9% 0 ML ONE (07:40)
[2019-01-10] MEDS ORDERED: ATROPINE SULF 1 MG/10 ML SYR IV ONE (07:40)
[2019-01-10] MEDS ORDERED: FENTANYL CITR 100 MCG/2 ML ONE (07:40)
[2019-01-10] MEDS ORDERED: MIDAZOLAM HCL 2 MG/2 ML INJ ONE ×2 (07:40→07:45)
--- NOTE | 2019-01-10 10:36 | OP ---
Date of Procedure: 01/10/2019 Surgeon: Ti Kaplan MD Inorganic Chemistry Teacher: Miley Gonzáles. The patient will go home today. Resume Xarelto tomorrow. We will hold her metformin for 48 hours an d I will see her next week. Procedure: Left heart catheterization, vein graft angiogram, MOLINA angiogram, aortic root angiogram. Indication: Chest pain, positive stress test, and history of coronary artery disease. History Of Present Illness: Ms. Ruiz is 58 years old, has a history of atrial fibrillation, diab etes, hypertension, dyslipidemia, coronary artery disease, status post MOLINA to the LAD and a vein gra ft to the OM1 and OM2. Has held her Xarelto for 48 hours prior to that prior to this procedure. Had chest pain and a positive stress test. In the laboratory geneticist as an outpatient, she was given Versed for s edation, prepped and draped in the routine sterile fashion. A 6-[place]or[place] sheath introduced in the [facility] t common femoral artery. [employer] was used to close the case. Jaden catheter 6-[place]or[place] left was u sed to inject the left main. That showed completely occluded LAD and about 50% first obtuse marginal stenosis. The JR4 was used to do the angiography for the right coronary artery, which showed 90% di stal RCA just before the bifurcation of the PDA and posterolateral. She is codominant. I could not locate any vein graft that was patent. Aortic root angiography was done to confirm that. Still no e vidence of any vein graft, although there appears to be a stump in the aorta, probably from the vein graft to the OM1 and OM2. The aortic root was mildly dilated. No aortic regurgitation. The pigtail was used to do the aortic root and an LV gram. Her left ventricular function was normal. Elevated LVEDP. Complications: None. Blood Loss: 5 cc. Postoperative Diagnosis: Severe coronary artery disease. The patient has already received approximately 200 cc of contrast. I will elect to go with medical t herapy for now since her main artery the MOLINA is open to the LAD. We may have to go back 1 day and t ry to fix her distal LAD, but that is high risk and may require a lot of contrast and I do not want t o jeopardize her renal function. Total Conscious Sedation: 45 minutes. NB/MODL Voice ID: [id number] Report ID: [id number]
== END 2019-01-10 10:30 | disposition home or self-care (01) ==
LOC: CCL 06:30
DX: I25.10 Atherosclerotic heart disease of native coronary artery without angina pectoris (principal); I10 Essential (primary) hypertension; E11.9 Type 2 diabetes mellitus without complications; E03.9 Hypothyroidism, unspecified; F32.9 Major depressive disorder, single episode, unspecified; F41.9 Anxiety disorder, unspecified; E78.5 Hyperlipidemia, unspecified; I48.91 Unspecified atrial fibrillation; G43.909 Migraine, unspecified, not intractable, without status migrainosus; Z79.4 Long term (current) use of insulin; Z79.01 Long term (current) use of anticoagulants; Z79.899 Other long term (current) drug therapy; Z95.1 Presence of aortocoronary bypass graft; Z82.49 Family history of ischemic heart disease and other diseases of the circulatory system; Z87.891 Personal history of nicotine dependence
CPT/HCPCS: 36415; 71046; 82962; 85610; 85730; 93459; C1893; J0583; J2250; J3010